=== PATIENT | male | born 1955 | race Caucasian/White ===

== ENCOUNTER 2020-11-27 13:40 | Outpatient (CLI) | payer BC, SELFPAY | END 2020-11-27 13:41 | disposition home or self-care (01) | LOC: CHSLAB 13:50 | PROVIDERS: PCP Specialist; Visit Provider Specialist | DX: C44.729 Squamous cell carcinoma of skin of left lower limb, including hip (principal); D22.5 Melanocytic nevi of trunk | CPT/HCPCS: 88305 ==

== ENCOUNTER 2023-04-28 13:44 | Outpatient (CLI) | payer OTHER, SELFPAY | END 2023-04-28 13:45 | disposition home or self-care (01) | LOC: CHSLAB 14:15 | PROVIDERS: PCP Family Medicine; Visit Provider Specialist | DX: C44.42 Squamous cell carcinoma of skin of scalp and neck (principal) | CPT/HCPCS: 88305 ==

== ENCOUNTER 2024-07-26 11:07 | Outpatient (CLI) | payer MEDICARE, SELFPAY ==
--- OUTSIDE RECORDS SUMMARY | 2024-07-26 12:27 | XMS_ITS ---
Author Organization Unknown Address [address] [place] [phone] Phone Care Team Providers Care Scales Inspector Name Role Phone LAZARO Mcdaniel Attending Unavailable ZEN Veliz Primary Unavailable Immunization Immunization Date Status Additional Notes Code Code System pneumococcal polysaccharide PPV23 11/06/2021 Completed 33 CVX Influenza, high-dose, trivalent, PF 02/02/2024 Completed 135 CVX Influenza, split virus, quadrivalent, PF 01/25/2020 Completed 150 CVX Influenza, split virus, quadrivalent, PF 02/26/2023 Completed 150 CVX Influenza, split virus, quadrivalent, preservative 01/28/2017 Completed 158 C VX Influenza, split virus, quadrivalent, preservative 02/02/2018 Completed 158 C VX Influenza, split virus, quadrivalent, preservative 02/23/2019 Completed 158 C VX zoster recombinant 01/25/2020 Completed 187 CVX zoster recombinant 05/30/2020 Completed 187 CVX Influenza, adjuvanted, quadrivalent, PF 03/11/2022 Completed 205 CVX COVID-19, mRNA, LNP-S, PF, 1 00 mcg/0.5mL dose or 50 mcg/0.25mL dose 07/27/2020 Completed 207 CVX COVID-19, mRNA, LNP-S, bivalent, PF, 50 mcg/0.5 mL or 25mcg/0.25 mL dose 03/11/2022 Completed 229 CVX COVID-19, mRNA, LNP-S, PF, karine-sucrose, 30 mcg/0.3 mL 02/26/2023 Completed 309 CVX COVID-19, mRNA, LNP-S, PF, karine-sucrose, 30 mcg/0.3 mL 02/02/2024 Completed 309 CVX Social History Type Status Start Date End Date Code Code Syst em Smoking History Never smoker (Never Smoked) [id number] SNOMED CT Sex Male Medications Medication Start Date End Date Route Frequency Dose Code Code System Medication Instructions Home Meds Amitriptyline HCl 50MG Oral Tablet 12/08/2023 03/15/2024 ORAL AT BEDTIME 25 MILLIGRAMS 498430 RxNorm TAKE 25 MILLIGRAMS ORAL AT BEDTIME Aspirin 81MG Oral Tablet, Enteric Coated 12/08/2023 Unknown ORAL ONCE A DAY 81 MILLIGRAMS 837909 RxNorm TAKE 81 MILLIGRAMS ORAL ONCE A DAY Chlorthalidone 25MG Oral Tablet 12/08/2023 Unknown ORAL ONCE A DAY 25 MILLIGRAMS 005199 RxNorm TAKE 25 MILLIGRAMS ORAL ONCE A DAY E-400-Clear 400 IU Oral Capsule 12/08/2023 Unknown ORAL ONCE A DAY 400 IU 237295 RxNorm TAKE 400 IU ORAL ONCE A DAY Esomeprazole Magnesium 20MG Oral Capsule, Delayed Release 12/08/2023 Unknown ORAL ONCE A DAY 20 MILLIGRAMS 262910 RxNorm TAKE 20 MILLIGRAMS ORAL ONCE A DAY Famotidine 10 10MG Oral Tablet 12/08/2023 Unknown ORAL ONCE A DAY 10 MILLIGRAMS RxNorm TAKE 10 MILLIGRAMS ORAL ONCE A DAY Fexofenadine HCl 180MG Oral Tablet 12/08/2023 Unknown ORAL NEEDED DAILY 180 MILLIGRAMS 552073 RxNorm TAKE 180 MILLIGRAMS ORAL NEEDED DAILY Gemfibrozil 600MG Oral Tablet 12/08/2023 Unknown ORAL TWICE A DAY 600 MILLIGRAMS 633246 RxNorm TAKE 600 MILLIGRAMS ORAL TWICE A DAY Jardiance 25MG Oral Tablet 12/08/2023 Unknown ORAL ONCE A DAY 25 MILLIGRAMS 8402239 RxNorm TAKE 25 MILLIGRAMS ORAL ONCE A DAY Lantus 100U/1ML Subcutaneous Solution 12/08/2023 Unknown SUBCU TANEO US AT BEDTIME 1 unit(s) 621263 RxNorm INJECT INTO 1 EACH SUBCUTANEOU S AT BEDTIME Lisinopril 40MG Oral Tablet 12/08/2023 Unknown ORAL ONCE A DAY 80 MILLIGRAMS 176393 RxNorm TAKE 80 MILLIGRAMS ORAL ONCE A DAY Meclizine HCl 25MG Oral Tablet 12/08/2023 Unknown ORAL NEEDED 3 TIMES A DAY 25 MILLIGRAMS 435599 RxNorm TAKE 25 MILLIGRAMS ORAL NEEDED 3 TIMES A DAY Metoprolol Tartrate 100MG Oral Tablet 12/08/2023 Unknown ORAL TWICE A DAY 100 MILLIGRAMS 297262 RxNorm TAKE 100 MILLIGRAMS ORAL TWICE A DAY Mounjaro 5 MG/0.5 ML Subcutaneous Solution 12/08/2023 Unknown SUBCU TANEO US ONCE A WEEK 1 unit(s) 6413008 RxNorm INJECT INTO 1 EACH SUBCUTANEOU S ONCE A WEEK Ocuvite Adult 50+ 150 MG-1 MG-6 MG-150 MG-30 INTERNATIONAL UNITS-9 MG Oral Capsule, Liquid Filled 12/08/2023 Unknown ORAL ONCE A DAY 1 unit(s) RxNorm TAKE 1 EACH ORAL ONCE A DAY [place]-3 1000MG Oral Capsule, Liquid Filled 12/08/2023 Unknown ORAL TWICE A DAY 2000 MILLIGRAMS 119157 RxNorm TAKE 2000 MILLIGRAMS ORAL TWICE A DAY Potassium Chloride 20MEQ Oral Tablet, Extended Release 12/08/2023 Unknown ORAL THREE TIMES A DAY 40 MEQ 8956426 RxNorm TAKE 40 MEQ ORAL THREE TIMES A DAY Rosuvastatin 10MG Oral Tablet 12/08/2023 Unknown ORAL AT BEDTIME 10 MILLIGRAMS 749649 RxNorm TAKE 10 MILLIGRAMS ORAL AT BEDTIME Triamcinolone Acetonide 0.5% Topical application Cream 12/08/2023 Unknown TOPIC AL APPLI CATIO N NEEDED 3 TIMES A DAY 1 unit(s) 2562794 RxNorm 1 EACH TOPICAL APPLICATION NEEDED 3 TIMES A DAY amLODIPine Besylate 10MG Oral Tablet 12/08/2023 Unknown ORAL ONCE A DAY 10 MILLIGRAMS 068558 RxNorm TAKE 10 MILLIGRAMS ORAL ONCE A DAY metFORMIN HCl 1000MG Oral Tablet 12/08/2023 Unknown ORAL TWICE A DAY 1000 MILLIGRAMS 264301 RxNorm TAKE 1000 MILLIGRAMS ORAL TWICE A DAY tadalafil 20MG Oral Tablet 12/08/2023 Unknown ORAL NEEDED DAILY 20 MILLIGRAMS 3916280 RxNorm TAKE 20 MILLIGRAMS ORAL NEEDED DAILY Hospital Discharge Instructions Should you have any questions prior to discharge, please contact a member of your healthcare team. If you have left the hospital and have any questions, please contact your primary care physician. Reason For Referral No Data Found Allergies and Adverse Reactions Allergy Substance Reaction Severity Start Date Concern Status Co de Code System No Known Allergies Active [id number] SNO MED-CT Plan of Treatment Carpal Tunnel Release L 12/08/2023 Cubital Tunnel Release R 03/21/2024 Encounters Encounter Diagnosis Start Date Code Code Sys tem Encounter for surgical after care following surgery on the nervous system 01/26/2024 SNOMED-CT Personal Care Team Section Performer Name Performer Role Active Date Inactive Da te
--- OUTSIDE RECORDS SUMMARY | 2024-07-26 12:27 | XMS_ITS ---
Author Organization Unknown Address [address] [place] [phone] Phone Care Team Providers Care Dairy Farm Operator Name Role Phone ZEN Veliz Attending Unavailable Immunization Immunization Date Status Additional Notes [...] 30 mcg/0.3 mL 02/02/2024 Completed 309 CVX Results COMPREHENSIVE METABOLIC PANE L - Collect Date/Time: 09/02/2023 09:32 [facility] ID: [id number] [address] [place], [place], [phone] LOINC: 58947-9 Test Value Unit Reference Range Code Code System Flag FASTING NO BUN 21 mg/dL L=7 H=20 3094-0 LOINC H CREATININE 1.00 mg/dL L=0.66 H=1.25 2160-0 LOINC GLUCOSE 209 mg/dL L=74 H=106 2345-7 LOINC H SODIUM 140 mmol/L L=132 H=144 2951-2 LOINC POTASSIUM 3.2 mmol/L L=3.5 H=5.1 2823-3 LOINC L CHLORIDE 100 mmol/L L=98 H=107 2075-0 LOINC CO2 30.0 mmol/L L=22.0 H=30.0 2028-9 LOINC ANION GAP 13 L=10 H=20 05214-7 LOINC OSMOLALITY 299 mOs/kG L=280 H=296 75968-3 LOINC H BUN/CREAT 21.0 3097-3 LOINC CALCIUM 9.0 mg/dL L=8.3 H=10.5 74472-8 LOINC AST 31 U/L L=15 H=46 1920-8 LOINC ALT 30 U/L L=9 H=72 1742-6 LOINC ALKALINE PHOS 124 U/L L=38 H=126 6768-6 LOINC TOTAL BILI 0.7 mg/dL L=0.2 H=1.3 1975-2 LOINC ALBUMIN 4.7 G/dL L=3.5 H=5.0 1751-7 LOINC TOTAL PROTEIN 7.8 g/L L=6.3 H=8.2 2885-2 LOINC A/G RATIO 1.5 12960-4 LOINC AGE 68 98114-1 LOINC eGFR NON-AFR 79 ml/min eGFR AFR AMER 96 ml/min HGB A1C -GLYCOHEMOGLOBIN - C ollect Date/Time: 09/02/2023 09:32 [facility] ID: [id number] [address] [place], [place], [id number] LOINC: 4548-4 Test Value Unit Reference Range Code Code System Flag HGBA1C 8.0 % 4548-4 LOINC Social History Type Status Start Date End Date Code Code Syst em Smoking History Never smoker (Never Smoked) [id number] SNOMED CT Sex Male Medications Medication Start Date End Date Route Frequency Dose Code Code System Medication Instructions Home Meds Amitriptyline HCl 50MG Oral Tablet 12/08/2023 03/15/2024 ORAL AT BEDTIME 25 MILLIGRAMS 726478 RxNorm TAKE 25 MILLIGRAMS ORAL AT BEDTIME Aspirin 81MG Oral Tablet, Enteric Coated 12/08/2023 Unknown ORAL ONCE A DAY 81 MILLIGRAMS 288719 RxNorm TAKE 81 MILLIGRAMS ORAL ONCE A DAY Chlorthalidone 25MG Oral Tablet 12/08/2023 Unknown ORAL ONCE A DAY 25 MILLIGRAMS 844986 RxNorm TAKE 25 MILLIGRAMS ORAL ONCE A DAY E-400-Clear 400 IU Oral Capsule 12/08/2023 Unknown ORAL ONCE A DAY 400 IU 932052 RxNorm TAKE 400 IU ORAL ONCE A DAY Esomeprazole Magnesium 20MG Oral Capsule, Delayed Release 12/08/2023 Unknown ORAL ONCE A DAY 20 MILLIGRAMS 025272 RxNorm TAKE 20 MILLIGRAMS ORAL ONCE A DAY Famotidine 10 10MG Oral Tablet 12/08/2023 Unknown ORAL ONCE A DAY 10 MILLIGRAMS RxNorm TAKE 10 MILLIGRAMS ORAL ONCE A DAY Fexofenadine HCl 180MG Oral Tablet 12/08/2023 Unknown ORAL NEEDED DAILY 180 MILLIGRAMS 254990 RxNorm TAKE 180 MILLIGRAMS ORAL NEEDED DAILY Gemfibrozil 600MG Oral Tablet 12/08/2023 Unknown ORAL TWICE A DAY 600 MILLIGRAMS 015302 RxNorm TAKE 600 MILLIGRAMS ORAL TWICE A DAY Jardiance 25MG Oral Tablet 12/08/2023 Unknown ORAL ONCE A DAY 25 MILLIGRAMS 8255980 RxNorm TAKE 25 MILLIGRAMS ORAL ONCE A DAY Lantus 100U/1ML Subcutaneous Solution 12/08/2023 Unknown SUBCU TANEO US AT BEDTIME 1 unit(s) 043461 RxNorm INJECT INTO 1 EACH SUBCUTANEOU S AT BEDTIME Lisinopril 40MG Oral Tablet 12/08/2023 Unknown ORAL ONCE A DAY 80 MILLIGRAMS 937004 RxNorm TAKE 80 MILLIGRAMS ORAL ONCE A DAY Meclizine HCl 25MG Oral Tablet 12/08/2023 Unknown ORAL NEEDED 3 TIMES A DAY 25 MILLIGRAMS 147458 RxNorm TAKE 25 MILLIGRAMS ORAL NEEDED 3 TIMES A DAY Metoprolol Tartrate 100MG Oral Tablet 12/08/2023 Unknown ORAL TWICE A DAY 100 MILLIGRAMS 132298 RxNorm TAKE 100 MILLIGRAMS ORAL TWICE A DAY Mounjaro 5 MG/0.5 ML Subcutaneous Solution 12/08/2023 Unknown SUBCU TANEO US ONCE A WEEK 1 unit(s) 0229476 RxNorm INJECT INTO 1 EACH SUBCUTANEOU S ONCE A WEEK Ocuvite Adult 50+ 150 MG-1 MG-6 MG-150 MG-30 INTERNATIONAL UNITS-9 MG Oral Capsule, Liquid Filled 12/08/2023 Unknown ORAL ONCE A DAY 1 unit(s) RxNorm TAKE 1 EACH ORAL ONCE A DAY [place]-3 1000MG Oral Capsule, Liquid Filled 12/08/2023 Unknown ORAL TWICE A DAY 2000 MILLIGRAMS 125996 RxNorm TAKE 2000 MILLIGRAMS ORAL TWICE A DAY Potassium Chloride 20MEQ Oral Tablet, Extended Release 12/08/2023 Unknown ORAL THREE TIMES A DAY 40 MEQ 0514596 RxNorm TAKE 40 MEQ ORAL THREE TIMES A DAY Rosuvastatin 10MG Oral Tablet 12/08/2023 Unknown ORAL AT BEDTIME 10 MILLIGRAMS 340011 RxNorm TAKE 10 MILLIGRAMS ORAL AT BEDTIME Triamcinolone Acetonide 0.5% Topical application Cream 12/08/2023 Unknown TOPIC AL APPLI CATIO N NEEDED 3 TIMES A DAY 1 unit(s) 0473334 RxNorm 1 EACH TOPICAL APPLICATION NEEDED 3 TIMES A DAY amLODIPine Besylate 10MG Oral Tablet 12/08/2023 Unknown ORAL ONCE A DAY 10 MILLIGRAMS 422449 RxNorm TAKE 10 MILLIGRAMS ORAL ONCE A DAY metFORMIN HCl 1000MG Oral Tablet 12/08/2023 Unknown ORAL TWICE A DAY 1000 MILLIGRAMS 378406 RxNorm TAKE 1000 MILLIGRAMS ORAL TWICE A DAY tadalafil 20MG Oral Tablet 12/08/2023 Unknown ORAL NEEDED DAILY 20 MILLIGRAMS 7412909 RxNorm TAKE 20 MILLIGRAMS ORAL NEEDED DAILY [...] de Code System No Known Allergies Active [id number] SNO MED-CT Plan of Treatment Carpal Tunnel Release L 12/08/2023 Cubital Tunnel Release R 03/21/2024 Encounters Encounter Diagnosis Start Date Code Code Sys tem Type 2 diabetes mellitus without complications 024 SNOMED-CT Personal Care Team Section Performer Name Performer Role Active Date Inactive Da te
--- OUTSIDE RECORDS SUMMARY | 2024-07-26 12:28 | XMS_ITS ---
Author Organization Unknown Address [address] [place] [address] [phone] Phone Care Team Providers Care Senior Branch Manager Name Role Phone LAZARO Mcdaniel Attending Unavailable SCOTT LOPEZ ABSTRACT CHECKER Unavailable ZEN Veliz Primary Unavailable Immunization Immunization [...] em Smoking History Never smoker (Never Smoked) [id number] SNOMED CT Sex Male Vital Signs Vital Sign Value Unit Winn Value Winn Unit Date/Time Recent/Initial? Code Code System Body Mass Index 28.87 kg/m2 03/21/2024 07:12 Most Recent 49834 -5 LOINC Body Mass Index 30.27 kg/m2 03/15/2024 09:40 Initial 58083 -5 LOINC Systolic Blood Pressure 109 mm[Hg] 03/21/2024 07:14 Initial 8480- 6 LOINC Diastolic Blood Pressure 60 mm[Hg] 03/21/2024 07:14 Initial 8462- 4 LOINC Body Surface Area 2.17 m2 03/21/2024 07:12 Most Recent 3140- 1 LOINC Body Surface Area 2.22 m2 03/15/2024 09:40 Initial 3140- 1 LOINC Height 180.340 0 cm 71.00 in 03/21/2024 07:12 Most Recent 8302- 2 LOINC Height 180.340 0 cm 71.00 in 03/15/2024 09:40 Initial 8302- 2 INC O2 Saturation 94 % 2023 07:14 Initial 72151 -5 INC Pulse 64.0 /min 03/21/2024 07:14 Initial 8867- 4 INC Respiration 14 /min 03/21/20 07:14 Initial 9279- 1 INC Temperature 36.2 Tarsha 97.1 F 03/21/20 07:14 Initial 8310- 5 INC Weight 93.89 kg 207.00 lbs 03/21/2024 07:12 Most Recent 67753 -7 INC Weight 98.43 kg 217.00 lbs 03/15/2024 09:40 Initial 18955 -7 [facility] Medications Medication Start Date End Date Route Frequency Dose Code Code System Medication Instructions Home Meds Aspirin 81MG Oral Tablet, Enteric Coated 12/08/2023 Unknown ORAL ONCE A DAY 81 MILLIGRAMS 274779 RxNorm TAKE 81 MILLIGRAMS ORAL ONCE A DAY Chlorthalid one 25MG Oral Tablet 12/08/2023 Unknown ORAL ONCE A DAY 25 MILLIGRAMS 687336 RxNorm TAKE 25 MILLIGRAMS ORAL ONCE A DAY E-400-Clear 400 IU Oral Capsule 12/08/2023 Unknown ORAL ONCE A DAY 400 IU 238653 RxNorm TAKE 400 IU ORAL ONCE A DAY Esomeprazol e Magnesium 20MG Oral Capsule, Delayed Release 12/08/2023 Unknown ORAL ONCE A DAY 20 MILLIGRAMS 605989 RxNorm TAKE 20 MILLIGRAMS ORAL ONCE A DAY Famotidine 10 10MG Oral Tablet 12/08/2023 Unknown ORAL ONCE A DAY 10 MILLIGRAMS RxNorm TAKE 10 MILLIGRAMS ORAL ONCE A DAY Fexofenadin e HCl 180MG Oral Tablet 12/08/2023 Unknown ORAL NEEDED DAILY 180 MILLIGRAMS 134755 RxNorm TAKE 180 MILLIGRAMS ORAL NEEDED DAILY Gemfibrozil 600MG Oral Tablet 12/08/2023 Unknown ORAL TWICE A DAY 600 MILLIGRAMS 897765 RxNorm TAKE 600 MILLIGRAMS ORAL TWICE A DAY Jardiance 25MG Oral Tablet 12/08/2023 Unknown ORAL ONCE A DAY 25 MILLIGRAMS 9160165 RxNorm TAKE 25 MILLIGRAMS ORAL ONCE A DAY Lantus 100U/1ML Subcutaneou s Solution 12/08/2023 Unknown SUBCUTAN EOUS AT BEDTIME 1 unit(s) 016451 RxNorm INJECT INTO 1 EACH SUBCUTANEOUS AT BEDTIME Lisinopril 40MG Oral Tablet 12/08/2023 Unknown ORAL ONCE A DAY 80 MILLIGRAMS 746641 RxNorm TAKE 80 MILLIGRAMS ORAL ONCE A DAY Meclizine HCl 25MG Oral Tablet 12/08/2023 Unknown ORAL NEEDED 3 TIMES A DAY 25 MILLIGRAMS 166034 RxNorm TAKE 25 MILLIGRAMS ORAL NEEDED 3 TIMES A DAY Metoprolol Tartrate 100MG Oral Tablet 12/08/2023 Unknown ORAL TWICE A DAY 100 MILLIGRAMS 606683 RxNorm TAKE 100 MILLIGRAMS ORAL TWICE A DAY Mounjaro 5 MG/0.5 ML Subcutaneou s Solution 12/08/2023 Unknown SUBCUTAN EOUS ONCE A WEEK 1 unit(s) 5417903 RxNorm INJECT INTO 1 EACH SUBCUTANEOUS ONCE A WEEK Ocuvite Adult 50+ 150 MG-1 MG-6 MG-150 MG-30 INTERNATION AL UNITS-9 MG Oral Capsule, Liquid Filled 12/08/2023 Unknown ORAL ONCE A DAY 1 unit(s) RxNorm TAKE 1 EACH ORAL ONCE A DAY [place]-3 1000MG Oral Capsule, Liquid Filled 12/08/2023 Unknown ORAL TWICE A DAY 2000 MILLIGRAMS 695055 RxNorm TAKE 2000 MILLIGRAMS ORAL TWICE A DAY Potassium Chloride 20MEQ Oral Tablet, Extended Release 12/08/2023 Unknown ORAL THREE TIMES A DAY 40 MEQ 3001649 RxNorm TAKE 40 MEQ ORAL THREE TIMES A DAY Rosuvastati n 10MG Oral Tablet 12/08/2023 Unknown ORAL AT BEDTIME 10 MILLIGRAMS 701835 RxNorm TAKE 10 MILLIGRAMS ORAL AT BEDTIME Triamcinolo ne Acetonide 0.5% Topical application Cream 12/08/2023 Unknown TOPICAL APPLICAT ION NEEDED 3 TIMES A DAY 1 unit(s) 8121686 RxNorm 1 EACH TOPICAL APPLICATION NEEDED 3 TIMES A DAY amLODIPine Besylate 10MG Oral Tablet 12/08/2023 Unknown ORAL ONCE A DAY 10 MILLIGRAMS 879825 RxNorm TAKE 10 MILLIGRAMS ORAL ONCE A DAY metFORMIN HCl 1000MG Oral Tablet 12/08/2023 Unknown ORAL TWICE A DAY 1000 MILLIGRAMS 059355 RxNorm TAKE 1000 MILLIGRAMS ORAL TWICE A DAY tadalafil 20MG Oral Tablet 12/08/2023 Unknown ORAL NEEDED DAILY 20 MILLIGRAMS 1392016 RxNorm TAKE 20 MILLIGRAMS ORAL NEEDED DAILY Hospital Discharge Instructions Should you have any questions prior to discharge, please contact a member of your healthcare team. If you have left the hospital and have any questions, please contact your primary care physician. Reason For Referral No Data Found Procedures Procedure Name Date Status Code Code Syste m Neuroplasty and/or transposi tion; median nerve at carpal tunnel; (-RT Righ 03/21/2024 completed 58501 CPT Anesthesia for procedures on nerves, muscles, tendons, fascia, and bursae 03/21/2024 completed 38520 CPT Neuroplasty and/or transposi tion; ulnar nerve at elbow 03/21/2024 completed 92963 CPT Allergies and Adverse Reactions Allergy Substance Reaction Severity Start Date Concern Status Co de Code System No Known Allergies Active [id number] [facility] [place]-CT Plan of Treatment Carpal Tunnel Release L 12/08/2023 Cubital Tunnel Release R 03/21/2024 Encounters Encounter Diagnosis Start Date Code Code Sys tem Carpal tunnel syndrome, right upper limb 03/21/2024 SNOMED-CT Personal Care Team Section Performer Name Performer Role Active Date Inactive Da te
--- OUTSIDE RECORDS SUMMARY | 2024-07-26 12:28 | XMS_ITS | Clinical Summary ---
Author Organization [facility] Address [facility] [place] [address] Care Team Providers Care Washer Repairman Name Role Phone Unavailable Primary Care Provider Unavailabl e Social History Tobacco Use Types Packs/Day Years Used Date Smoking Tobacco: Never Assessed Sex and Gender Information Value Date Recorded Sex Assigned at Not on file Legal Sex Male 8:52 PM CDT Gender Identity Not on file Sexual Orientation Not on file Plan of Treatment Health Maintenance Due Date Last Done Comments Colorectal Cancer Screening Colonoscopy (10 Years) 1956 Hepatitis C 1974 DTaP, Tdap and Td Vaccines ( 1 - Tdap) 1975 Zoster Vaccines (1 of 2) 2006 Pneumococcal Vaccine: 65+ Ye ars (1 of 1 - PCV) 2021 COVID-19 Vaccine (1 - 2023-2 5 season) 2023 Influenza Adult (#1) 2024 RSV Immunization or 60+ Years (1 - 1-dose 75+ series) 2031 Meningococcal B Vaccine Aged Out No l onger eligible based on patient's age to complete this topic Meningococcal Vaccine Aged Out No cara adela eligible based on patient's age to complete this topic RSV Immunizations Under 20 Months Aged Out No longer eligible based on patient's age to complete this topic Insurance
--- OUTSIDE RECORDS SUMMARY | 2024-07-26 12:28 | XMS_ITS ---
Author Organization Unknown Address [address] [place] [address] [phone] Phone Care Team Providers Care Lawn And Garden Technician Name Role Phone ZEN Veliz Attending Unavailable [...] mcg/0.3 mL 02/02/2024 Completed 309 CVX Results HGB A1C -GLYCOHEMOGLOBIN - C ollect Date/Time: 03/31/2023 09:01 [facility] ID: [id number] [address] [place] [address], [phone] LOINC: 4548-4 Test Value Unit Reference Range Code Code System Flag HGBA1C 8.0 % 4548-4 LOINC LIPID PANEL - Collect Date/T shiraz: 03/31/2023 09:01 [facility] ID: [id number] [address] [place] [address], [phone] LOINC: 46991-6 Test Value Unit Reference Range Code Code System Flag FASTING YES CHOLESTEROL 191 mg/dL L=0 H=200 2093-3 LOINC TRIGLYCERIDE 679 mg/dL L=0 H=150 2571-8 LOINC H HDL 33 mg/dL L=40 H=60 2084-9 LOINC L LDL 56 mg/dL 2088- LOINC COMPREHENSIVE METABOLIC PANE L - Collect Date/Time: 03/31/2023 09:01 [facility] ID: [id number] [address] [place] [address], [phone] LOINC: 79469-3 Test Value Unit Reference Range Code Code System Flag FASTING YES BUN 24 mg/dL L=7 H=20 3094-0 LOINC H CREATININE 1.00 mg/dL L=0.66 H=1.25 2160-0 LOINC GLUCOSE 140 mg/dL L=74 H=106 2345-7 LOINC H SODIUM 144 mmol/L L=132 H=144 2951-2 LOINC POTASSIUM 3.4 mmol/L L=3.5 H=5.1 2823-3 LOINC L CHLORIDE 102 mmol/L L=98 H=107 2075-0 LOINC CO2 30.0 mmol/L L=22.0 H=30.0 8-9 LOINC ANION GAP 15 L=10 H=20 60039-5 LOINC OSMOLALITY 304 mOs/kG L=280 H=296 79710-9 LOINC H BUN/CREAT 24.0 3097-3 LOINC CALCIUM 9.7 mg/dL L=8.3 H=10.5 19951-7 LOINC AST 26 U/L L=15 H=46 1920-8 LOINC ALT 33 U/L L=9 H=72 1742-6 LOINC ALKALINE PHOS 127 U/L L=38 H=126 6768-6 LOINC H TOTAL BILI 0.7 mg/dL L=0.2 H=1.3 1975-2 LOINC ALBUMIN 5.1 G/dL L=3.5 H=5.0 1751-7 LOINC H TOTAL PROTEIN 8.6 g/L L=6.3 H=8.2 2885-2 LOINC H A/G RATIO 1.5 25136-4 LOINC AGE 67 65582-7 LOINC eGFR NON-AFR 79 ml/min eGFR AFR AMER 96 ml/min MICROALBUMIN - Collect Date/ Time: 03/31/2023 08:58 [facility] ID: [id number] [address] [place], [place], [phone] LOINC: 63029-6 Test Value Unit Reference Range Code Code System Flag MICROALBUMIN 28.5 mg/L L=0.0 H=16.7 96482-4 LOINC H UR CREATININE 102.60 mg/dL L=30.00 H=125 2161-8 LOINC MA/CR 27.8 mg/gCR Social History Type Status Start Date End Date Code Code Syst em Smoking History Never smoker (Never Smoked) [id number] SNOMED CT Sex Male Medications Medication Start Date End Date Route Frequency Dose Code Code System Medication Instructions Home Meds Amitriptyline HCl 50MG Oral Tablet 12/08/2023 03/15/2024 ORAL AT BEDTIME 25 MILLIGRAMS 844680 RxNorm TAKE 25 MILLIGRAMS ORAL AT BEDTIME Aspirin 81MG Oral Tablet, Enteric Coated 12/08/2023 Unknown ORAL ONCE A DAY 81 MILLIGRAMS 323031 RxNorm TAKE 81 MILLIGRAMS ORAL ONCE A DAY Chlorthalidone 25MG Oral Tablet 12/08/2023 Unknown ORAL ONCE A DAY 25 MILLIGRAMS 483290 RxNorm TAKE 25 MILLIGRAMS ORAL ONCE A DAY E-400-Clear 400 IU Oral Capsule 12/08/2023 Unknown ORAL ONCE A DAY 400 IU [id number] RxNorm TAKE 400 IU ORAL ONCE A DAY Esomeprazole Magnesium 20MG Oral Capsule, Delayed Release 12/08/2023 Unknown ORAL ONCE A DAY 20 MILLIGRAMS 025434 RxNorm TAKE 20 MILLIGRAMS ORAL ONCE A DAY Famotidine 10 10MG Oral Tablet 12/08/2023 Unknown ORAL ONCE A DAY 10 MILLIGRAMS RxNorm TAKE 10 MILLIGRAMS ORAL ONCE A DAY Fexofenadine HCl 180MG Oral Tablet 12/08/2023 Unknown ORAL NEEDED DAILY 180 MILLIGRAMS 447853 RxNorm TAKE 180 MILLIGRAMS ORAL NEEDED DAILY Gemfibrozil 600MG Oral Tablet 12/08/2023 Unknown ORAL TWICE A DAY 600 MILLIGRAMS 302005 RxNorm TAKE 600 MILLIGRAMS ORAL TWICE A DAY Jardiance 25MG Oral Tablet 12/08/2023 Unknown ORAL ONCE A DAY 25 MILLIGRAMS 9421865 RxNorm TAKE 25 MILLIGRAMS ORAL ONCE A DAY Lantus 100U/1ML Subcutaneous Solution 12/08/2023 Unknown SUBCU TANEO US AT BEDTIME 1 unit(s) 081738 RxNorm INJECT INTO 1 EACH SUBCUTANEOU S AT BEDTIME Lisinopril 40MG Oral Tablet 12/08/2023 Unknown ORAL ONCE A DAY 80 MILLIGRAMS 694603 RxNorm TAKE 80 MILLIGRAMS ORAL ONCE A DAY Meclizine HCl 25MG Oral Tablet 12/08/2023 Unknown ORAL NEEDED 3 TIMES A DAY 25 MILLIGRAMS 224485 RxNorm TAKE 25 MILLIGRAMS ORAL NEEDED 3 TIMES A DAY Metoprolol Tartrate 100MG Oral Tablet 12/08/2023 Unknown ORAL TWICE A DAY 100 MILLIGRAMS 984373 RxNorm TAKE 100 MILLIGRAMS ORAL TWICE A DAY Mounjaro 5 MG/0.5 ML Subcutaneous Solution 12/08/2023 Unknown SUBCU TANEO US ONCE A WEEK 1 unit(s) 4432074 RxNorm INJECT INTO 1 EACH SUBCUTANEOU S ONCE A WEEK Ocuvite Adult 50+ 150 MG-1 MG-6 MG-150 MG-30 INTERNATIONAL UNITS-9 MG Oral Capsule, Liquid Filled 12/08/2023 Unknown ORAL ONCE A DAY 1 unit(s) RxNorm TAKE 1 EACH ORAL ONCE A DAY [place]-3 1000MG Oral Capsule, Liquid Filled 12/08/2023 Unknown ORAL TWICE A DAY 2000 MILLIGRAMS 665182 RxNorm TAKE 2000 MILLIGRAMS ORAL TWICE A DAY Potassium Chloride 20MEQ Oral Tablet, Extended Release 12/08/2023 Unknown ORAL THREE TIMES A DAY 40 MEQ 8515651 RxNorm TAKE 40 MEQ ORAL THREE TIMES A DAY Rosuvastatin 10MG Oral Tablet 12/08/2023 Unknown ORAL AT BEDTIME 10 MILLIGRAMS 911027 RxNorm TAKE 10 MILLIGRAMS ORAL AT BEDTIME Triamcinolone Acetonide 0.5% Topical application Cream 12/08/2023 Unknown TOPIC AL APPLI CATIO N NEEDED 3 TIMES A DAY 1 unit(s) 7749090 RxNorm 1 EACH TOPICAL APPLICATION NEEDED 3 TIMES A DAY amLODIPine Besylate 10MG Oral Tablet 12/08/2023 Unknown ORAL ONCE A DAY 10 MILLIGRAMS 977664 RxNorm TAKE 10 MILLIGRAMS ORAL ONCE A DAY metFORMIN HCl 1000MG Oral Tablet 12/08/2023 Unknown ORAL TWICE A DAY 1000 MILLIGRAMS 848399 RxNorm TAKE 1000 MILLIGRAMS ORAL TWICE A DAY tadalafil 20MG Oral Tablet 12/08/2023 Unknown ORAL NEEDED DAILY 20 MILLIGRAMS 4120048 RxNorm TAKE 20 MILLIGRAMS ORAL NEEDED DAILY [...] de Code System No Known Allergies Active [id number] [facility] Plan of Treatment Carpal Tunnel Release L 12/08/2023 Cubital Tunnel Release R 03/21/2024 Encounters Encounter Diagnosis Start Date Code Code Sys tem Type 2 diabetes mellitus without complications 023 SNOMED-CT Personal Care Team Section Performer Name Performer Role Active Date Inactive Da jayro
--- OUTSIDE RECORDS SUMMARY | 2024-07-26 12:28 | XMS_ITS ---
Author Organization Unknown Address [address] [place] [address] [phone] Phone Care Team Providers Care Goggles Assembler Name Role Phone BLAKE ROSS Attending Unavailable ZEN Veliz Primary Unavailable Immunization [...] em Smoking History Never smoker (Never Smoked) [id number] SNOMED CT Sex Male Medications Medication Start Date End Date Route Frequency Dose Code Code System Medication Instructions Home Meds Aspirin 81MG Oral Tablet, Enteric Coated 12/08/2023 Unknown ORAL ONCE A DAY 81 MILLIGRAMS 221028 RxNorm TAKE 81 MILLIGRAMS ORAL ONCE A DAY Chlorthalid one 25MG Oral Tablet 12/08/2023 Unknown ORAL ONCE A DAY 25 MILLIGRAMS 852928 RxNorm TAKE 25 MILLIGRAMS ORAL ONCE A DAY E-400-Clear 400 IU Oral Capsule 12/08/2023 Unknown ORAL ONCE A DAY 400 IU 040479 RxNorm TAKE 400 IU ORAL ONCE A DAY Esomeprazol e Magnesium 20MG Oral Capsule, Delayed Release 12/08/2023 Unknown ORAL ONCE A DAY 20 MILLIGRAMS 114018 RxNorm TAKE 20 MILLIGRAMS ORAL ONCE A DAY Famotidine 10 10MG Oral Tablet 12/08/2023 Unknown ORAL ONCE A DAY 10 MILLIGRAMS RxNorm TAKE 10 MILLIGRAMS ORAL ONCE A DAY Fexofenadin e HCl 180MG Oral Tablet 12/08/2023 Unknown ORAL NEEDED DAILY 180 MILLIGRAMS 713807 RxNorm TAKE 180 MILLIGRAMS ORAL NEEDED DAILY Gemfibrozil 600MG Oral Tablet 12/08/2023 Unknown ORAL TWICE A DAY 600 MILLIGRAMS 603995 RxNorm TAKE 600 MILLIGRAMS ORAL TWICE A DAY Jardiance 25MG Oral Tablet 12/08/2023 Unknown ORAL ONCE A DAY 25 MILLIGRAMS 9352731 RxNorm TAKE 25 MILLIGRAMS ORAL ONCE A DAY Lantus 100U/1ML Subcutaneou s Solution 12/08/2023 Unknown SUBCUTAN EOUS AT BEDTIME 1 unit(s) 865158 RxNorm INJECT INTO 1 EACH SUBCUTANEOUS AT BEDTIME Lisinopril 40MG Oral Tablet 12/08/2023 Unknown ORAL ONCE A DAY 80 MILLIGRAMS 108984 RxNorm TAKE 80 MILLIGRAMS ORAL ONCE A DAY Meclizine HCl 25MG Oral Tablet 12/08/2023 Unknown ORAL NEEDED 3 TIMES A DAY 25 MILLIGRAMS 215456 RxNorm TAKE 25 MILLIGRAMS ORAL NEEDED 3 TIMES A DAY Metoprolol Tartrate 100MG Oral Tablet 12/08/2023 Unknown ORAL TWICE A DAY 100 MILLIGRAMS 897260 RxNorm TAKE 100 MILLIGRAMS ORAL TWICE A DAY Mounjaro 5 MG/0.5 ML Subcutaneou s Solution 12/08/2023 Unknown SUBCUTAN EOUS ONCE A WEEK 1 unit(s) 4028406 RxNorm INJECT INTO 1 EACH SUBCUTANEOUS ONCE A WEEK Ocuvite Adult 50+ 150 MG-1 MG-6 MG-150 MG-30 INTERNATION AL UNITS-9 MG Oral Capsule, Liquid Filled 12/08/2023 Unknown ORAL ONCE A DAY 1 unit(s) RxNorm TAKE 1 EACH ORAL ONCE A DAY [place]-3 1000MG Oral Capsule, Liquid Filled 12/08/2023 Unknown ORAL TWICE A DAY 2000 MILLIGRAMS 758447 RxNorm TAKE 2000 MILLIGRAMS ORAL TWICE A DAY Potassium Chloride 20MEQ Oral Tablet, Extended Release 12/08/2023 Unknown ORAL THREE TIMES A DAY 40 MEQ 9247035 RxNorm TAKE 40 MEQ ORAL THREE TIMES A DAY Rosuvastati n 10MG Oral Tablet 12/08/2023 Unknown ORAL AT BEDTIME 10 MILLIGRAMS 961325 RxNorm TAKE 10 MILLIGRAMS ORAL AT BEDTIME Triamcinolo ne Acetonide 0.5% Topical application Cream 12/08/2023 Unknown TOPICAL APPLICAT ION NEEDED 3 TIMES A DAY 1 unit(s) 0044371 RxNorm 1 EACH TOPICAL APPLICATION NEEDED 3 TIMES A DAY amLODIPine Besylate 10MG Oral Tablet 12/08/2023 Unknown ORAL ONCE A DAY 10 MILLIGRAMS 506666 RxNorm TAKE 10 MILLIGRAMS ORAL ONCE A DAY metFORMIN HCl 1000MG Oral Tablet 12/08/2023 Unknown ORAL TWICE A DAY 1000 MILLIGRAMS 512369 RxNorm TAKE 1000 MILLIGRAMS ORAL TWICE A DAY tadalafil 20MG Oral Tablet 12/08/2023 Unknown ORAL NEEDED DAILY 20 MILLIGRAMS 8726244 RxNorm TAKE 20 MILLIGRAMS ORAL NEEDED DAILY [...] de Code System No Known Allergies Active [id number] [facility] Plan of Treatment Carpal Tunnel Release L 12/08/2023 Cubital Tunnel Release R 03/21/2024 Encounters Encounter Diagnosis Start Date Code Code Sys tem Pain in left hip 06/09/2024 SNOMED-CT Personal Care Team Section Performer Name Performer Role Active Date Inactive Da te
--- OUTSIDE RECORDS SUMMARY | 2024-07-26 12:28 | XMS_ITS ---
Author Organization Unknown Address [address] [place] [address] [phone] Phone Care Team Providers Care Drum Sander Name Role Phone LAZARO Mcdaniel Attending Unavailable [...] em Smoking History Never smoker (Never Smoked) [id number] SNOMED CT Sex Male Medications Medication Start Date End Date Route Frequency Dose Code Code System Medication Instructions Home Meds Amitriptyline HCl 50MG Oral Tablet 12/08/2023 03/15/2024 ORAL AT BEDTIME 25 MILLIGRAMS 645738 RxNorm TAKE 25 MILLIGRAMS ORAL AT BEDTIME Aspirin 81MG Oral Tablet, Enteric Coated 12/08/2023 Unknown ORAL ONCE A DAY 81 MILLIGRAMS 857045 RxNorm TAKE 81 MILLIGRAMS ORAL ONCE A DAY Chlorthalidone 25MG Oral Tablet 12/08/2023 Unknown ORAL ONCE A DAY 25 MILLIGRAMS 508177 RxNorm TAKE 25 MILLIGRAMS ORAL ONCE A DAY E-400-Clear 400 IU Oral Capsule 12/08/2023 Unknown ORAL ONCE A DAY 400 IU 515311 RxNorm TAKE 400 IU ORAL ONCE A DAY Esomeprazole Magnesium 20MG Oral Capsule, Delayed Release 12/08/2023 Unknown ORAL ONCE A DAY 20 MILLIGRAMS 275346 RxNorm TAKE 20 MILLIGRAMS ORAL ONCE A DAY Famotidine 10 10MG Oral Tablet 12/08/2023 Unknown ORAL ONCE A DAY 10 MILLIGRAMS RxNorm TAKE 10 MILLIGRAMS ORAL ONCE A DAY Fexofenadine HCl 180MG Oral Tablet 12/08/2023 Unknown ORAL NEEDED DAILY 180 MILLIGRAMS 183527 RxNorm TAKE 180 MILLIGRAMS ORAL NEEDED DAILY Gemfibrozil 600MG Oral Tablet 12/08/2023 Unknown ORAL TWICE A DAY 600 MILLIGRAMS 558624 RxNorm TAKE 600 MILLIGRAMS ORAL TWICE A DAY Jardiance 25MG Oral Tablet 12/08/2023 Unknown ORAL ONCE A DAY 25 MILLIGRAMS 7341492 RxNorm TAKE 25 MILLIGRAMS ORAL ONCE A DAY Lantus 100U/1ML Subcutaneous Solution 12/08/2023 Unknown SUBCU TANEO US AT BEDTIME 1 unit(s) 513255 RxNorm INJECT INTO 1 EACH SUBCUTANEOU S AT BEDTIME Lisinopril 40MG Oral Tablet 12/08/2023 Unknown ORAL ONCE A DAY 80 MILLIGRAMS 128265 RxNorm TAKE 80 MILLIGRAMS ORAL ONCE A DAY Meclizine HCl 25MG Oral Tablet 12/08/2023 Unknown ORAL NEEDED 3 TIMES A DAY 25 MILLIGRAMS 159564 RxNorm TAKE 25 MILLIGRAMS ORAL NEEDED 3 TIMES A DAY Metoprolol Tartrate 100MG Oral Tablet 12/08/2023 Unknown ORAL TWICE A DAY 100 MILLIGRAMS 802570 RxNorm TAKE 100 MILLIGRAMS ORAL TWICE A DAY Mounjaro 5 MG/0.5 ML Subcutaneous Solution 12/08/2023 Unknown SUBCU TANEO US ONCE A WEEK 1 unit(s) 6892939 RxNorm INJECT INTO 1 EACH SUBCUTANEOU S ONCE A WEEK Ocuvite Adult 50+ 150 MG-1 MG-6 MG-150 MG-30 INTERNATIONAL UNITS-9 MG Oral Capsule, Liquid Filled 12/08/2023 Unknown ORAL ONCE A DAY 1 unit(s) RxNorm TAKE 1 EACH ORAL ONCE A DAY [place]-3 1000MG Oral Capsule, Liquid Filled 12/08/2023 Unknown ORAL TWICE A DAY 2000 MILLIGRAMS 293146 RxNorm TAKE 2000 MILLIGRAMS ORAL TWICE A DAY Potassium Chloride 20MEQ Oral Tablet, Extended Release 12/08/2023 Unknown ORAL THREE TIMES A DAY 40 MEQ 1237091 RxNorm TAKE 40 MEQ ORAL THREE TIMES A DAY Rosuvastatin 10MG Oral Tablet 12/08/2023 Unknown ORAL AT BEDTIME 10 MILLIGRAMS 403920 RxNorm TAKE 10 MILLIGRAMS ORAL AT BEDTIME Triamcinolone Acetonide 0.5% Topical application Cream 12/08/2023 Unknown TOPIC AL APPLI CATIO N NEEDED 3 TIMES A DAY 1 unit(s) 9266956 RxNorm 1 EACH TOPICAL APPLICATION NEEDED 3 TIMES A DAY amLODIPine Besylate 10MG Oral Tablet 12/08/2023 Unknown ORAL ONCE A DAY 10 MILLIGRAMS 910841 RxNorm TAKE 10 MILLIGRAMS ORAL ONCE A DAY metFORMIN HCl 1000MG Oral Tablet 12/08/2023 Unknown ORAL TWICE A DAY 1000 MILLIGRAMS 541455 RxNorm TAKE 1000 MILLIGRAMS ORAL TWICE A DAY tadalafil 20MG Oral Tablet 12/08/2023 Unknown ORAL NEEDED DAILY 20 MILLIGRAMS 3619653 RxNorm TAKE 20 MILLIGRAMS ORAL NEEDED DAILY [...] de Code System No Known Allergies Active [id number] [facility] Plan of Treatment Carpal Tunnel Release L 12/08/2023 Cubital Tunnel Release R 03/21/2024 Encounters Encounter Diagnosis Start Date Code Code Sys tem Carpal tunnel syndrome, bilateral upper limbs 10/20/19 SNOMED-CT Personal Care Team Section Performer Name Performer Role Active Date Inactive Da te
--- OUTSIDE RECORDS SUMMARY | 2024-07-26 12:29 | XMS_ITS | Data Portability ---
Author Organization [facility], [address] [place] [address] Neurology (CT) Address [address] [place] [id number] Care Team Providers Care Chocolate Maker Name Role Phone GRAZYNA ZALDIVAR Primary Care Provider [phone] [facility] Referring Provider Assessment Encounter Date Assessment Date Assessment LastModified by Organization Details LastModified Time 01/26/2024 01/26/2024 History: Oz romo s a 81-lwgr-cmw-male who returns for follow-up. It is his right carpal tunnel and cubital tunnel possibly. 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 He has had a couple nerve tests, one by Dr. Felix in the past as well as one from [facility] a number of years ago. He was told not to do anything with the Parsonage Sepulveda. He says he is really bothered by cold or heat on his right arm. He cannot sleep sometimes because of it. He had his left carpal tunnel release by myself a few months ago and he has done very well with this. Physical Examination: He has atrophy of the right hand and no atrophy of the left hand. The left carpal tunnel incision is well healed. Mild decreased sensation in the right hand. Positive cubital tunnel Tinel s test on the right side and a mildly positive carpal tunnel compression test on the right side. Assessment: 1. 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 2. Status post left carpal tunnel release. Plan: Clinical findings were discussed with the patient. I recommended an EMG nerve conduction test of the right upper extremity. He will follow up after the nerve test to discuss treatment options. anc Not available 01/26/2024 11:48:08 02/09/2024 02/09/2024 History: Oz returns for follow-up. He says overall his left hand is doing much better after his left carpal tunnel release. He is here to review his nerve test on his right upper extremity. Once again, he had Parsonage Sepulveda some years ago. It has stabilized at this point, but he has a lot of nerve symptoms of his right arm, especially through the elbow. He also has symptoms in his hand as well to some degree. He says that if the air hits it incorrectly, it does cause increased discomfort. He has tried therapy exercises as well. Physical Examination: He has interosseous atrophy of his right hand. He has a mildly positive cubital tunnel test and carpal tunnel compression test on the right side. He has a well healed left carpal tunnel incision on the left side. EMG nerve conduction test of his right upper extremity were independently reviewed from Dr. Felix s office and shows moderate right carpal tunnel and mild right cubital tunnel syndrome. Assessment: 1. Moderate right carpal tunnel syndrome. 2. Right cubital tunnel syndrome. 3. Status post left carpal tunnel release. 4. History of Parsonage Sepulveda Syndrome. Plan: Clinical findings were discussed with the patient. 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 He does have some abnormal findings on exam as well as his nerve test. I therefore recommended a right open carpal tunnel and cubital tunnel release. The risks, benefits, and alternatives of surgery, including but not limited to infection, wound healing problems, stiffness of his elbow, continued elbow electrical sensation and pain were discussed in detail. He was aware of the risks and wished to proceed. anc Not available 02/09/2024 14:01:55 03/21/2024 03/21/2024 Preoperative diagnosis: Right carpal and cubital tunnel syndrome. Postoperative diagnosis: Right carpal and cubital tunnel syndrome. Procedure: Right carpal and cubital tunnel release. Surgeon: Yossi Arguello M.D. Admin Secretary: None. Anesthesia: Local with sedation. Estimated blood loss: Minimal. Complications: None. Intraoperative findings: Severe compression of the median nerve at the carpal tunnel due to a thickened transverse carpal ligament. Compression of the ulnar nerve at the cubital tunnel. Brief history and physical examination: The patient has a long-standing history of right hand numbness and tingling. They have failed conservative measures. They wish to proceed with a right carpal and cubital tunnel release. The risks, benefits and alternatives of surgery including but not limited to infection, wound problems, thenar eminence pain, continued numbness and tingling, nerve injury and bleeding were discussed in detail. They expressed understanding and wished to proceed. They signed the informed consent. The patient did have a history of Parsonage Sepulveda which may effect his outcome. Procedure: Patient signed the informed consent and the right upper extremity. They were brought back to the operative suite. There were given light sedation. The right upper extremity was then prepped and draped in the normal sterile fashion. A timeout was called and site and side were verified. A longitudinal incision was marked over the radial border of the fourth digit, ulnar to the thenar eminence, proximal to Maher's cardinal line, and distal to the wrist crease. The incision was pre-injected with half percent Marcaine. The limb was exsanguinated and tourniquet inflated to 250 millimeters mercury. The incision was made through skin and subcutaneous tissue with a 15 blade scalpel. Send retractors were brought in and as well as a Ragnell retractor. The palmar fascia was split longitudinally with a 15 blade scalpel. The transverse carpal ligament was split with a 15 blade scalpel down to the level of the carpal canal. A Littler scissors was used to release the transverse carpal ligament distally to the level of the fat pad and proximally into the antebrachial fascia. There was no intracanal mass. The medial elbow incision was marked just posterior to the medial epicondyles. It was pre-injected with Marcaine with epinephrine. The incision was made through skin and subcutaneous tissue with a knife. Blunt dissection was performed on to level of the cubital tunnel. The cubital tunnel was noted to be thickened and release with Littler scissors. We released the fascia overlying the flexor carpi ulnaris and the ulnar nerve. There is compression of the ulnar nerve at the cubital tunnel. We released the intermuscular septum. The tourniquet was let down. Bovie electrocautery was used to coagulate all bleeding vessels. The elbow incision was closed with 3-0 undyed Vicryl and 4-0 Monocryl. Steri-Strips were applied. The wrist wound was closed with 4-0 nylon suture in a horizontal mattress fashion. Adaptic, fluffs, web roll and Cy wrap were applied. The patient returned to the recovery room in stable condition. All sponge, instrument and needle counts were correct. Disposition: Pain management: Vxvb-pny-wbwxske medications for pain. Dressing: Keep the dressing on for 2 days and then allowed to shower. Place a Band-Aid over the incision. Do not soak the wound for approximately 2 weeks. Follow-up: Follow-up in 2 weeks for suture removal at the wrist. Home physical therapy exercises: They may begin range of motion exercises of the fingers immediately postoperatively. Sling as needed. [email or web address] Not available 03/21/2024 09:52:31 04/05/2024 04/05/2024 History: Oz returns for follow-up of his right wrist and elbow. He is doing very well. Much better than anticipated. He still has the P[place]age Sepulveda issues, but his overall pain is much better at night. He is also having significant relief on the left side as well. Physical Examination: The incisions are well healed about the right wrist and right elbow. Full range of motion of the bilateral wrists and elbows. He still has the atrophy of the interosseous muscles, as expected with his history of Parsonage Sepulveda Syndrome. His left wrist incision is also well healed. Assessment: 1. Status post right carpal and cubital tunnel release. 2. Status post left carpal tunnel release. 3. History of right P[place]age Sepulveda Syndrome. Plan: Clinical findings were discussed with the patient. I recommended conservative management of his right wrist and elbow with home exercises. We talked about it taking a while for the skin issues to recover with regard to pushing off things. If he has issues going forward, I am happy to see him back as needed. anc Not available 04/05/2024 11:57:19 Plan of Treatment Reminders Order Date Submit Date Provider Last Modified By Organization Details Last Modified Time Details Appointments None record ed. Lab None record ed. Referral None record ed. Procedures None record ed. Surgeries None record ed. Imaging None record ed. Medication Orders None record ed. Patient TargetsNo targets recorded. Patient InstructionsNo instructions recorded. Reason for Referral None Reported. Results Created Date Observation Date Name Description Value Unit Range Abnormal Flag Note LastModifiedBy Organization Detail LastModifiedTime 02/03/20 24 elect romyo gram + nerve condu ction study No observ ation record ed. [email or web address] Not Available 2023 16:34:52 Result Notes None recorded. Problems Name Problem SNOMED Code Status Onset Date Resolution Date Notes Provider Name and Address Organization Details Recorded Time Right P[place]age Sepulveda syndrome 9444733471127 9102 Active 2023 Yossi Arguello MD [address] [place] [address], [phone], [facility] 4 09:02:22 Ulnar nerve entrapment at elbow 461260895 Active 2023 Yossi Arguello MD [address] [place] [address], [phone], [facility] 4 09:03:07 Ulnar nerve entrapment at elbow 705525775 Active 2023 Yossi Arguello MD [address] [place] [address], [phone], [facility] 4 08:20:01 Carpal tunnel syndrome of left wrist 5833313003945 02 Active 2023 Kathleen Felix MD [address] [place] [address], [address], [facility] 4 11:39:58 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 Procedures Surgical History Date Name Laterality Status Provider Name and Address Organization Details Recorded Time 03/21/20 24 decompression of ulnar nerve at elbow completed Yossi Arguello MD [address] [place] [address], [phone], [facility] 03/21/2024 09:22:44 03/21/20 24 decompression of median nerve completed Yossi Arguello MD [address] [place] [address], [phone], [facility] 03/21/2024 09:23:05 01/28/20 24 SC EMG Procedure completed Debra Ross [facility] 01/28/2024 16:08:39 12/08/19 24 SC Operative Report completed Yossi Arguello MD [address] [place] [address], [phone], [facility] 12/08/2023 08:41:44 12/08/19 24 decompression of median nerve completed Yossi Arguello MD [address] [place] [address], [phone], [facility] 12/08/2023 08:42:30 10/01/19 24 SC EMG Procedure completed Kathleen Felix MD [address] [place] [address], [phone], [facility] 10/01/2023 18:54:51 Colonoscopy with biopsy completed Not Available Health Note 10/18/2023 12:43:49 Removal of tonsils completed Not Available Health Note 10/18/2023 12:43:49 Imaging Results Imaging Date Name Status LastModified by Organization Details LastModified Time 02/03/2024 electromyogram + nerve conduction study completed [email or web address] Information not available 02/06/2024 16:34:52 Procedure Notes None recorded. Medical Equipment None Reported. Allergies No known drug allergies Medications Name Sig Start Date Stop Date Status Note LastModified by Organization Details LastModified Time metoprolol tartrate 100 mg tablet active Not Available Not Available Not Available Lantus U-100 Insulin 100 unit/mL subcutaneous solution active Not Available Not Available Not Available chlorthalidone 25 mg tablet active Not Available Not Available Not Available potassium chloride ER 20 mEq tablet,extended release(/ st) active Not Available Not Available Not Available amlodipine 10 mg tablet active Not Available Not Available Not Available gemfibrozil 600 mg tablet active Not Available Not Available No t Available metformin 1,000 mg tablet active Not Available Not Available No t Available lisinopril 40 mg tablet active Not Available Not Available Not Available esomeprazole magnesium 20 mg capsule,delayed release active Not Available Not Available Not Available rosuvastatin 10 mg tablet active Not Available Not Available No t Available tadalafil 20 mg tablet active Not Available Not Available Not Available Jardiance 25 mg tablet active Not Available Not Available Not Available Droplet Insulin Syringe 1 mL 31 gauge x 5/16 active Not Available Not Availabl e Not Available Mounjaro 5 mg/0.5 mL subcutaneous pen injector active Not Available Not Available Not Available Mounjaro 2.5 mg/0.5 mL subcutaneous pen injector active Not Available Not Available Not Available Vitals Date Recorded Body height Body mass index (BMI) Body weight Heart rate Oxygen saturation Oxygen saturation in Arterial blood by Pulse oximetry Systolic blood pressure Diastolic blood pressure Provider Name and Address Organization Details Last Updated DateTime 4 180.34 cm 30 kg/m2 24792.3 6 g 68 /min 98 % 98 % 131 mm[Hg] 74 mm[Hg] [facility] 4 10:30:43 Date Recorded Body height Body mass index (BMI) Body weight Heart rate Oxygen saturation Oxygen saturation in Arterial blood by Pulse oximetry Systolic blood pressure Diastolic blood pressure Provider Name and Address Organization Details Last Updated DateTime 4 180.34 cm 29.3 kg/m2 32996.4 g 67 /min 98 % 98 % 106 mm[Hg] 69 mm[Hg] [facility] 4 10:31:11 Date Recorded Body height Body mass index (BMI) Body weight Heart rate Oxygen saturation Oxygen saturation in Arterial blood by Pulse oximetry Systolic blood pressure Diastolic blood pressure Provider Name and Address Organization Details Last Updated DateTime 4 180.34 cm 29.3 kg/m2 56637.4 g 64 /min 98 % 98 % 127 mm[Hg] 54 mm[Hg] [facility] 4 08:55:03 Social History Question Answer Notes LastModified by Organizat ion Details LastModified Time Tobacco Smoking Status [facility] 01/26/2024 10:31:03 Do You Have An Advance Directive? Yes [email or web address] Information not available 10/18/2023 What Is Your Level Of Alcohol Consumption? None [email or web address] Information not available 10/18/2023 What Is Your Level Of Caffeine Consumption? Heavy [email or web address] Information not available 10/18/2023 What Is Your Code Status? Full Code [email or web address] Information not available 10/18/2023 Are You Currently Employed? No [email or web address] Information not available 10/18/2023 Which Illicit Or Recreational Drugs Have You Used? 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 1-2 Times Per Week [email or web address] Information not available 10/18/2023 Do You Have A Medical Power Of Mutual Fund Sales Agent? Yes [email or web address] Information not available 10/18/2023 What Was The Date Of Your Most Recent Tobacco Screening? 10/20/2023 [email or web address] Information not available 10/18/2023 What Is Your Relationship Status? [email or web address] Information not available 10/18/2023 Do You Use Any Illicit Or Recreational Drugs? Yes [email or web address] Information not available 10/18/2023 Sex: Unknown Functional Status Question Answer Note LastModified by Organizat ion Details LastModified Time What is your exercise level? Occasional [email or web address] Information not available 10/18/2023 Mental Status None recorded. Family History Relationship Description Onset Age of this Age Resolved Age Notes LastModified by Organization Details LastModified Time Mother Arthritis [email or web address] Not available 10/18/2023 12:43:48 Mother Hypertensive disorder [email or web address] Not available 2023 12:43:48 Mother Hypercholest erolemia [email or web address] Not available 2023 12:43:48 Mother Disorder of thyroid gland [email or web address] Not available 2023 12:43:48 Maternal Grandmother Arthritis [email or web address] Not available 09/26 12:43:48 Maternal Grandmother Diabetes mellitus [email or web address] Not available 2023 12:43:48 Maternal Grandmother Hypertensive disorder [email or web address] Not available 2023 12:43:48 Maternal Grandmother Kidney disease [email or web address] Not available 2023 12:43:48 Sister Family history of malignant neoplasm [email or web address] Not available 2023 12:43:48 Sister Heart disease [email or web address] Not available 2023 12:43:48 Sister Hypertensive disorder [email or web address] Not available 2023 12:43:48 Father Heart disease [email or web address] Not available 2023 12:43:48 Father Hypertensive disorder [email or web address] Not available 2023 12:43:48 Father Hypercholest erolemia [email or web address] Not available 2023 12:43:48 Father Cerebrovascu lar accident [email or web address] Not available 12:43:48 Medical History Condition Response Diabetes Y Anxiety Disorder N Bleeding Disorder N Attention-deficit Hyperactivity Disorder N High Blood Pressure Y Arthritis N Hyperlipidemia Y Cancer N Thyroid Problems N Stroke N Asthma N COPD N Depression N Anemia N Seizures N Heart Disease N Fibromyalgia N Osteoporosis N Kidney Disease N Past Encounters Encounter ID Performer Location Encounter Start Date Encounter Closed Date Diagnosis/Indication Diagnosis SNOMED-CT Code Diagnosis ICD10 Code Diagnosis Note [id number] Kathleen Felix MD [facility] Specialty Neurology (CT) [address] [place] [address] 10/01/2023 10:48:09 10/02/2023 14:30:24 Carpal tunnel syndrome of left wrist 4347126574 15138 G56.02 [id number] Yossi Arguello MD [facility] Orthopedi cs ([place]) [address] [place] [address] 10/20/2023 12:17:27 10/20/2023 13:12:44 Carpal tunnel syndrome of left wrist 2052744001 49312 G56.02 Neuralgic amyotrophy 266 68675 G54.5 Additional diagnosis detail: Parsonage- Sepulveda syndrome Carpal rudolph luna syndrome of right wrist 5828995089 48296 G56.01 Additional diagnosis detail: Right carpal tunnel syndrome [id number] MD Jj Renee [facility] [place] [address] 12/08/2023 08:37:14 12/08/2023 15:07:32 [id number] [facility] ([place] [place] [address] 12/22/2023 08:48:27 12/22/2023 09:03:53 Carpal tunnel syndrome of left wrist 5088981624 84951 G56.02 Carpal rudolph luna syndrome of right wrist 2039099699 32292 G56.01 Additional diagnosis detail: Right carpal tunnel syndrome [id number] Yossi Arguello MD [facility] Orthopedi (CT) [place] [address] 01/26/2024 10:24:52 01/26/2024 10:40:48 Ulnar nerve entrapment at elbow 687243885 G56.21 Additional diagnosis detail: Ulnar nerve entrapment at right elbow Carpal rudolph luna syndrome of right wrist 8021895818 13274 G56.01 Additional diagnosis detail: Right carpal tunnel syndrome [id number] Kathleen Felix MD [facility] Specialty Neurology (CT) [place] [address] 01/28/2024 09:13:01 01/29/2024 07:07:22 Carpal tunnel syndrome of right wrist 8186112834 05531 G56.01 Ulnar nerv e entrapment at elbow 939065045 G56.21 [id number] Yossi Arguello MD [facility] ([place]) [place] [address] 02/09/2024 10:18:17 02/09/2024 10:50:12 Ulnar nerve entrapment at elbow 220225020 G56.21 Additional diagnosis detail: Ulnar nerve entrapment at right elbow Carpal rudolph luna syndrome of right wrist 9887334178 77814 G56.01 Additional diagnosis detail: Right carpal tunnel syndrome Right Pars onage Sepulveda syndrome 2027661437 2678090 G54.5 [id number] MD Jj Renee [facility] [place] [address] 03/21/2024 09:31:40 03/21/2024 09:52:39 [id number] Yossi Arguello MD [facility] Orthopedi (CT) [facility] [place] [address] 04/05/2024 08:50:00 04/05/2024 09:05:28 Ulnar nerve entrapment at elbow 921426782 G56.21 Additional diagnosis detail: Ulnar nerve entrapment at right elbow Carpal rudolph luna syndrome of right wrist 1992284648 91155 G56.01 Additional diagnosis detail: Right carpal tunnel syndrome Right Pars onage Sepulveda syndrome 9038235557 0717287 G54.5 Carpal rudolph luna syndrome of left wrist 1262851351 60333 G56.02 Health Concerns Section Related Observation LastModified by Organization Detai ls LastModified Time None Recorded Concern Status LastModified by Organization Details LastModified Time None Recorded Advance Directives Directive Y: Payers Encounter Date Sequence Insurance Name Policy Number Policy An Covered Member ID An Member ID Guarantor Name 01/26/2024 1 [employer] (MEDICARE REPLACEMENT/A DVANTAGE - PPO) [id number] Oz Strope [id number] Oz Strope 01/26/2024 2 [place] Oz Strope [id number] Oz Strope 01/28/2024 1 [employer] (MEDICARE REPLACEMENT/A DVANTAGE - PPO) [id number] Oz Strope [id number] Oz Strope 01/28/2024 2 [place] Oz Strope [id number] Oz Strope 02/09/2024 1 [employer] (MEDICARE REPLACEMENT/A DVANTAGE - PPO) [id number] Oz Strope [id number] Oz Strope 02/09/2024 2 [place] Oz Strope [id number] Oz Strope 03/21/2024 1 [employer] (MEDICARE REPLACEMENT/A DVANTAGE - PPO) [id number] Oz Strope [id number] Oz Strope 04/05/2024 1 [employer] (MEDICARE REPLACEMENT/A DVANTAGE - PPO) [id number] Oz Brandy [id number] Oz Nava Notes Date Note Type Note Provider Name and Address Organization Details Recorded Time 02/09/2024 text/html Oz Bailey a 68 year oldmalepresenting for care. Yossi Arguello MD [facility] [place] [address], [phone], [facility] 02/10/2024 09:09:37 04/05/2024 text/html Oz Bailey a 68 year oldmalepresenting for care. Yossi Arguello MD [address] [place] [address], [address], [facility] 04/06/2024 09:00:23
--- OUTSIDE RECORDS SUMMARY | 2024-07-26 12:29 | XMS_ITS ---
Author Organization Unknown Address [address] [place] [address] [phone] Phone Care Team Providers Care Cancer Registrar Name Role Phone LAZARO Mcdaniel Attending Unavailable [...] em Smoking History Never smoker (Never Smoked) [id number] SNOMED CT Sex Male Medications Medication Start Date End Date Route Frequency Dose Code Code System Medication Instructions Home Meds Amitriptyline HCl 50MG Oral Tablet 12/08/2023 03/15/2024 ORAL AT BEDTIME 25 MILLIGRAMS 312108 RxNorm TAKE 25 MILLIGRAMS ORAL AT BEDTIME Aspirin 81MG Oral Tablet, Enteric Coated 12/08/2023 Unknown ORAL ONCE A DAY 81 MILLIGRAMS 238115 RxNorm TAKE 81 MILLIGRAMS ORAL ONCE A DAY Chlorthalidone 25MG Oral Tablet 12/08/2023 Unknown ORAL ONCE A DAY 25 MILLIGRAMS 235468 RxNorm TAKE 25 MILLIGRAMS ORAL ONCE A DAY E-400-Clear 400 IU Oral Capsule 12/08/2023 Unknown ORAL ONCE A DAY 400 IU 563455 RxNorm TAKE 400 IU ORAL ONCE A DAY Esomeprazole Magnesium 20MG Oral Capsule, Delayed Release 12/08/2023 Unknown ORAL ONCE A DAY 20 MILLIGRAMS 855520 RxNorm TAKE 20 MILLIGRAMS ORAL ONCE A DAY Famotidine 10 10MG Oral Tablet 12/08/2023 Unknown ORAL ONCE A DAY 10 MILLIGRAMS RxNorm TAKE 10 MILLIGRAMS ORAL ONCE A DAY Fexofenadine HCl 180MG Oral Tablet 12/08/2023 Unknown ORAL NEEDED DAILY 180 MILLIGRAMS 867010 RxNorm TAKE 180 MILLIGRAMS ORAL NEEDED DAILY Gemfibrozil 600MG Oral Tablet 12/08/2023 Unknown ORAL TWICE A DAY 600 MILLIGRAMS 515623 RxNorm TAKE 600 MILLIGRAMS ORAL TWICE A DAY Jardiance 25MG Oral Tablet 12/08/2023 Unknown ORAL ONCE A DAY 25 MILLIGRAMS 6819574 RxNorm TAKE 25 MILLIGRAMS ORAL ONCE A DAY Lantus 100U/1ML Subcutaneous Solution 12/08/2023 Unknown SUBCU TANEO US AT BEDTIME 1 unit(s) 300564 RxNorm INJECT INTO 1 EACH SUBCUTANEOU S AT BEDTIME Lisinopril 40MG Oral Tablet 12/08/2023 Unknown ORAL ONCE A DAY 80 MILLIGRAMS 604306 RxNorm TAKE 80 MILLIGRAMS ORAL ONCE A DAY Meclizine HCl 25MG Oral Tablet 12/08/2023 Unknown ORAL NEEDED 3 TIMES A DAY 25 MILLIGRAMS 607905 RxNorm TAKE 25 MILLIGRAMS ORAL NEEDED 3 TIMES A DAY Metoprolol Tartrate 100MG Oral Tablet 12/08/2023 Unknown ORAL TWICE A DAY 100 MILLIGRAMS 917260 RxNorm TAKE 100 MILLIGRAMS ORAL TWICE A DAY Mounjaro 5 MG/0.5 ML Subcutaneous Solution 12/08/2023 Unknown SUBCU TANEO US ONCE A WEEK 1 unit(s) 5374650 RxNorm INJECT INTO 1 EACH SUBCUTANEOU S ONCE A WEEK Ocuvite Adult 50+ 150 MG-1 MG-6 MG-150 MG-30 INTERNATIONAL UNITS-9 MG Oral Capsule, Liquid Filled 12/08/2023 Unknown ORAL ONCE A DAY 1 unit(s) RxNorm TAKE 1 EACH ORAL ONCE A DAY [place]-3 1000MG Oral Capsule, Liquid Filled 12/08/2023 Unknown ORAL TWICE A DAY 2000 MILLIGRAMS 488480 RxNorm TAKE 2000 MILLIGRAMS ORAL TWICE A DAY Potassium Chloride 20MEQ Oral Tablet, Extended Release 12/08/2023 Unknown ORAL THREE TIMES A DAY 40 MEQ 5839908 RxNorm TAKE 40 MEQ ORAL THREE TIMES A DAY Rosuvastatin 10MG Oral Tablet 12/08/2023 Unknown ORAL AT BEDTIME 10 MILLIGRAMS 426520 RxNorm TAKE 10 MILLIGRAMS ORAL AT BEDTIME Triamcinolone Acetonide 0.5% Topical application Cream 12/08/2023 Unknown TOPIC AL APPLI CATIO N NEEDED 3 TIMES A DAY 1 unit(s) 6150660 RxNorm 1 EACH TOPICAL APPLICATION NEEDED 3 TIMES A DAY amLODIPine Besylate 10MG Oral Tablet 12/08/2023 Unknown ORAL ONCE A DAY 10 MILLIGRAMS 637328 RxNorm TAKE 10 MILLIGRAMS ORAL ONCE A DAY metFORMIN HCl 1000MG Oral Tablet 12/08/2023 Unknown ORAL TWICE A DAY 1000 MILLIGRAMS 501548 RxNorm TAKE 1000 MILLIGRAMS ORAL TWICE A DAY tadalafil 20MG Oral Tablet 12/08/2023 Unknown ORAL NEEDED DAILY 20 MILLIGRAMS 5296293 RxNorm TAKE 20 MILLIGRAMS ORAL NEEDED DAILY [...] de Code System No Known Allergies Active [id number] [facility] Plan of Treatment Carpal Tunnel Release L 12/08/2023 Cubital Tunnel Release R 03/21/2024 Encounters Encounter Diagnosis Start Date Code Code Sys tem Carpal tunnel syndrome, right upper limb 02/09/2024 SNOMED-CT Personal Care Team Section Performer Name Performer Role Active Date Inactive Da te
--- OUTSIDE RECORDS SUMMARY | 2024-07-26 12:30 | XMS_ITS ---
Author Organization Unknown Address [address] [place] [address] [phone] Phone Care Team Providers Care Analytical Chemist Name Role Phone LAZARO Mcdaniel Attending Unavailable [...] COMPREHENSIVE METABOLIC PANE L - Collect Date/Time: 04/05/2024 08:30 [facility] ID: [id number] [address] [place], [place], [id number] LOINC: 64151-4 Test Value Unit Reference Range Code Code System Flag FASTING YES BUN 26 mg/dL L=7 H=20 3094-0 LOINC H CREATININE 1.10 mg/dL L=0.66 H=1.25 2160-0 LOINC GLUCOSE 78 mg/dL L=74 H=106 2345-7 LOINC SODIUM 143 mmol/L L=132 H=144 2951-2 LOINC POTASSIUM 3.4 mmol/L L=3.5 H=5.1 2823-3 LOINC L CHLORIDE 100 mmol/L L=98 H=107 2075-0 LOINC CO2 30.0 mmol/L L=22.0 H=30.0 2028-9 LOINC ANION GAP 16 L=10 H=20 42299-3 LOINC OSMOLALITY 300 mOs/kG L=280 H=296 69093-7 LOINC H BUN/CREAT 23.6 3097-3 LOINC CALCIUM 9.6 mg/dL L=8.3 H=10.5 33266-5 LOINC AST 24 U/L L=15 H=46 1920-8 LOINC ALT 20 U/L L=9 H=72 1742-6 LOINC ALKALINE PHOS 96 U/L L=38 H=126 6768-6 LOINC TOTAL BILI 0.6 mg/dL L=0.2 H=1.3 1975-2 LOINC ALBUMIN 5.4 G/dL L=3.5 H=5.0 1751-7 LOINC H TOTAL PROTEIN 8.4 g/L L=6.3 H=8.2 2885-2 LOINC H A/G RATIO 1.8 97418-7 LOINC AGE 68 34560-6 LOINC eGFR NON-AFR 71 ml/min eGFR AFR AMER 86 ml/min LIPID PANEL - Collect Date/T shiraz: 04/05/2024 08:30 [facility] ID: [id number] [address] [place], [place], [id number] LOINC: 78356-6 Test Value Unit Reference Range Code Code System Flag FASTING YES CHOLESTEROL 145 mg/dL L=0 H=200 3-3 LOINC TRIGLYCERIDE 232 mg/dL L=0 H=150 2571-8 LOINC H HDL 37 mg/dL L=40 H=60 5-9 LOINC L LDL 59 mg/dL 2088-1 LOINC Social History Type Status Start Date End Date Code Code Syst em Smoking History Never smoker (Never Smoked) [id number] SNOMED CT Sex Male Medications Medication Start Date End Date Route Frequency Dose Code Code System Medication Instructions Home Meds Aspirin 81MG Oral Tablet, Enteric Coated 12/08/2023 Unknown ORAL ONCE A DAY 81 MILLIGRAMS 150025 RxNorm TAKE 81 MILLIGRAMS ORAL ONCE A DAY Chlorthalid one 25MG Oral Tablet 12/08/2023 Unknown ORAL ONCE A DAY 25 MILLIGRAMS 645137 RxNorm TAKE 25 MILLIGRAMS ORAL ONCE A DAY E-400-Clear 400 IU Oral Capsule 12/08/2023 Unknown ORAL ONCE A DAY 400 IU 420586 RxNorm TAKE 400 IU ORAL ONCE A DAY Esomeprazol e Magnesium 20MG Oral Capsule, Delayed Release 12/08/2023 Unknown ORAL ONCE A DAY 20 MILLIGRAMS 266414 RxNorm TAKE 20 MILLIGRAMS ORAL ONCE A DAY Famotidine 10 10MG Oral Tablet 12/08/2023 Unknown ORAL ONCE A DAY 10 MILLIGRAMS RxNorm TAKE 10 MILLIGRAMS ORAL ONCE A DAY Fexofenadin e HCl 180MG Oral Tablet 12/08/2023 Unknown ORAL NEEDED DAILY 180 MILLIGRAMS 370372 RxNorm TAKE 180 MILLIGRAMS ORAL NEEDED DAILY Gemfibrozil 600MG Oral Tablet 12/08/2023 Unknown ORAL TWICE A DAY 600 MILLIGRAMS 396459 RxNorm TAKE 600 MILLIGRAMS ORAL TWICE A DAY Jardiance 25MG Oral Tablet 12/08/2023 Unknown ORAL ONCE A DAY 25 MILLIGRAMS 1113194 RxNorm TAKE 25 MILLIGRAMS ORAL ONCE A DAY Lantus 100U/1ML Subcutaneou s Solution 12/08/2023 Unknown SUBCUTAN EOUS AT BEDTIME 1 unit(s) 205105 RxNorm INJECT INTO 1 EACH SUBCUTANEOUS AT BEDTIME Lisinopril 40MG Oral Tablet 12/08/2023 Unknown ORAL ONCE A DAY 80 MILLIGRAMS 824545 RxNorm TAKE 80 MILLIGRAMS ORAL ONCE A DAY Meclizine HCl 25MG Oral Tablet 12/08/2023 Unknown ORAL NEEDED 3 TIMES A DAY 25 MILLIGRAMS 517621 RxNorm TAKE 25 MILLIGRAMS ORAL NEEDED 3 TIMES A DAY Metoprolol Tartrate 100MG Oral Tablet 12/08/2023 Unknown ORAL TWICE A DAY 100 MILLIGRAMS 029772 RxNorm TAKE 100 MILLIGRAMS ORAL TWICE A DAY Mounjaro 5 MG/0.5 ML Subcutaneou s Solution 12/08/2023 Unknown SUBCUTAN EOUS ONCE A WEEK 1 unit(s) 5261391 RxNorm INJECT INTO 1 EACH SUBCUTANEOUS ONCE A WEEK Ocuvite Adult 50+ 150 MG-1 MG-6 MG-150 MG-30 INTERNATION AL UNITS-9 MG Oral Capsule, Liquid Filled 12/08/2023 Unknown ORAL ONCE A DAY 1 unit(s) RxNorm TAKE 1 EACH ORAL ONCE A DAY [place]-3 1000MG Oral Capsule, Liquid Filled 12/08/2023 Unknown ORAL TWICE A DAY 2000 MILLIGRAMS 742502 RxNorm TAKE 2000 MILLIGRAMS ORAL TWICE A DAY Potassium Chloride 20MEQ Oral Tablet, Extended Release 12/08/2023 Unknown ORAL THREE TIMES A DAY 40 MEQ 3373722 RxNorm TAKE 40 MEQ ORAL THREE TIMES A DAY Rosuvastati n 10MG Oral Tablet 12/08/2023 Unknown ORAL AT BEDTIME 10 MILLIGRAMS 545328 RxNorm TAKE 10 MILLIGRAMS ORAL AT BEDTIME Triamcinolo ne Acetonide 0.5% Topical application Cream 12/08/2023 Unknown TOPICAL APPLICAT ION NEEDED 3 TIMES A DAY 1 unit(s) 1317128 RxNorm 1 EACH TOPICAL APPLICATION NEEDED 3 TIMES A DAY amLODIPine Besylate 10MG Oral Tablet 12/08/2023 Unknown ORAL ONCE A DAY 10 MILLIGRAMS 696627 RxNorm TAKE 10 MILLIGRAMS ORAL ONCE A DAY metFORMIN HCl 1000MG Oral Tablet 12/08/2023 Unknown ORAL TWICE A DAY 1000 MILLIGRAMS 143079 RxNorm TAKE 1000 MILLIGRAMS ORAL TWICE A DAY tadalafil 20MG Oral Tablet 12/08/2023 Unknown ORAL NEEDED DAILY 20 MILLIGRAMS 2269978 RxNorm TAKE 20 MILLIGRAMS ORAL NEEDED DAILY [...] de Code System No Known Allergies Active [id number] [facility]-CT Plan of Treatment Carpal Tunnel Release L 12/08/2023 Cubital Tunnel Release R 03/21/2024 Encounters Encounter Diagnosis Start Date Code Code Sys tem Encounter for surgical after care following surgery on the nervous system 04/05/2024 SNOMED-CT Personal Care Team Section Performer Name Performer Role Active Date Inactive Da jayro
--- OUTSIDE RECORDS SUMMARY | 2024-07-26 12:30 | XMS_ITS ---
Author Organization Unknown Address [address] [place] [address] [phone] Phone Care Team Providers Care Accounting Recruiter Name Role Phone BLAKE ROSS Attending Unavailable [...] em Smoking History Never smoker (Never Smoked) [id number] SNOMED CT Sex Male Medications Medication Start Date End Date Route Frequency Dose Code Code System Medication Instructions Home Meds Aspirin 81MG Oral Tablet, Enteric Coated 12/08/2023 Unknown ORAL ONCE A DAY 81 MILLIGRAMS 584544 RxNorm TAKE 81 MILLIGRAMS ORAL ONCE A DAY Chlorthalid one 25MG Oral Tablet 12/08/2023 Unknown ORAL ONCE A DAY 25 MILLIGRAMS 458306 RxNorm TAKE 25 MILLIGRAMS ORAL ONCE A DAY E-400-Clear 400 IU Oral Capsule 12/08/2023 Unknown ORAL ONCE A DAY 400 IU 259298 RxNorm TAKE 400 IU ORAL ONCE A DAY Esomeprazol e Magnesium 20MG Oral Capsule, Delayed Release 12/08/2023 Unknown ORAL ONCE A DAY 20 MILLIGRAMS 721247 RxNorm TAKE 20 MILLIGRAMS ORAL ONCE A DAY Famotidine 10 10MG Oral Tablet 12/08/2023 Unknown ORAL ONCE A DAY 10 MILLIGRAMS RxNorm TAKE 10 MILLIGRAMS ORAL ONCE A DAY Fexofenadin e HCl 180MG Oral Tablet 12/08/2023 Unknown ORAL NEEDED DAILY 180 MILLIGRAMS 196623 RxNorm TAKE 180 MILLIGRAMS ORAL NEEDED DAILY Gemfibrozil 600MG Oral Tablet 12/08/2023 Unknown ORAL TWICE A DAY 600 MILLIGRAMS 697249 RxNorm TAKE 600 MILLIGRAMS ORAL TWICE A DAY Jardiance 25MG Oral Tablet 12/08/2023 Unknown ORAL ONCE A DAY 25 MILLIGRAMS 4846116 RxNorm TAKE 25 MILLIGRAMS ORAL ONCE A DAY Lantus 100U/1ML Subcutaneou s Solution 12/08/2023 Unknown SUBCUTAN EOUS AT BEDTIME 1 unit(s) 839880 RxNorm INJECT INTO 1 EACH SUBCUTANEOUS AT BEDTIME Lisinopril 40MG Oral Tablet 12/08/2023 Unknown ORAL ONCE A DAY 80 MILLIGRAMS 557388 RxNorm TAKE 80 MILLIGRAMS ORAL ONCE A DAY Meclizine HCl 25MG Oral Tablet 12/08/2023 Unknown ORAL NEEDED 3 TIMES A DAY 25 MILLIGRAMS 486436 RxNorm TAKE 25 MILLIGRAMS ORAL NEEDED 3 TIMES A DAY Metoprolol Tartrate 100MG Oral Tablet 12/08/2023 Unknown ORAL TWICE A DAY 100 MILLIGRAMS 337929 RxNorm TAKE 100 MILLIGRAMS ORAL TWICE A DAY Mounjaro 5 MG/0.5 ML Subcutaneou s Solution 12/08/2023 Unknown SUBCUTAN EOUS ONCE A WEEK 1 unit(s) 5986445 RxNorm INJECT INTO 1 EACH SUBCUTANEOUS ONCE A WEEK Ocuvite Adult 50+ 150 MG-1 MG-6 MG-150 MG-30 INTERNATION AL UNITS-9 MG Oral Capsule, Liquid Filled 12/08/2023 Unknown ORAL ONCE A DAY 1 unit(s) RxNorm TAKE 1 EACH ORAL ONCE A DAY [place]-3 1000MG Oral Capsule, Liquid Filled 12/08/2023 Unknown ORAL TWICE A DAY 2000 MILLIGRAMS 679568 RxNorm TAKE 2000 MILLIGRAMS ORAL TWICE A DAY Potassium Chloride 20MEQ Oral Tablet, Extended Release 12/08/2023 Unknown ORAL THREE TIMES A DAY 40 MEQ 1390052 RxNorm TAKE 40 MEQ ORAL THREE TIMES A DAY Rosuvastati n 10MG Oral Tablet 12/08/2023 Unknown ORAL AT BEDTIME 10 MILLIGRAMS 012327 RxNorm TAKE 10 MILLIGRAMS ORAL AT BEDTIME Triamcinolo ne Acetonide 0.5% Topical application Cream 12/08/2023 Unknown TOPICAL APPLICAT ION NEEDED 3 TIMES A DAY 1 unit(s) 9282671 RxNorm 1 EACH TOPICAL APPLICATION NEEDED 3 TIMES A DAY amLODIPine Besylate 10MG Oral Tablet 12/08/2023 Unknown ORAL ONCE A DAY 10 MILLIGRAMS 739648 RxNorm TAKE 10 MILLIGRAMS ORAL ONCE A DAY metFORMIN HCl 1000MG Oral Tablet 12/08/2023 Unknown ORAL TWICE A DAY 1000 MILLIGRAMS 316942 RxNorm TAKE 1000 MILLIGRAMS ORAL TWICE A DAY tadalafil 20MG Oral Tablet 12/08/2023 Unknown ORAL NEEDED DAILY 20 MILLIGRAMS 3004871 RxNorm TAKE 20 MILLIGRAMS ORAL NEEDED DAILY [...] de Code System No Known Allergies Active [id number] [facility] Plan of Treatment Carpal Tunnel Release L 12/08/2023 Cubital Tunnel Release R 03/21/2024 Encounters Encounter Diagnosis Start Date Code Code Sys tem 06/28/2024 [id number] SNOMED-CT Personal Care Team Section Performer Name Performer Role Active Date Inactive Da te
--- OUTSIDE RECORDS SUMMARY | 2024-07-26 12:30 | XMS_ITS ---
Author Organization Unknown Address [address] [place] [address] [phone] Phone Care Team Providers Care Sales Attendant Building Materials Name Role Phone LAZARO Mcdaniel Attending Unavailable BRISEYDA BRYANT CRNA Unavailable ZEN Veliz Primary Unavailable Immunization Immunization [...] mcg/0.3 mL 02/02/2024 Completed 309 CVX Results BEDSIDE GLUCOSE - Collect Da te/Time: 12/08/2023 07:47 [facility] ID: [id number] [address] [place], [place], [id number] LOINC: 88038-8 Test Value Unit Reference Range Code Code System Flag BEDSIDE GLUCOSE 86 mg/dl L=74 H=106 90157-1 LOINC BEDSIDE GLUCOSE - Collect Da te/Time: 12/08/2023 06:31 [facility] ID: [id number] [address] [place] [address], [id number] LOINC: 80094-0 Test Value Unit Reference Range Code Code System Flag BEDSIDE GLUCOSE 117 mg/dl L=74 H=106 56294-0 LOINC H Social History Type Status Start Date End Date Code Code Syst em Smoking History Never smoker (Never Smoked) [id number] SNOMED CT Sex Male Vital Signs Vital Sign Value Unit [place] Value [place] Unit Date/Time Recent/Initial? Code Code System Body Mass Index 29.99 kg/m2 12/08/2023 06:37 Most Recent 02727 -5 [facility] Body Mass Index 30.27 kg/m2 11/25/2023 09:54 Initial 09287 -5 [facility] Systolic Blood Pressure 104 mm[Hg] 12/08/2023 06:35 Initial 8480- 6 [facility] Diastolic Blood Pressure 58 mm[Hg] 12/08/2023 06:35 Initial 8462- 4 [facility] Body Surface Area 2.21 m2 12/08/2023 06:37 Most Recent 3140- 1 [facility] Body Surface Area 2.22 m2 11/25/2023 09:54 Initial 3140- 1 [facility] Height 180.340 0 cm 71.00 in 12/08/2023 06:37 Most Recent 8302- 2 [facility] Height 180.340 0 cm 71.00 in 11/25/2023 09:54 Initial 8302- 2 [facility] O2 Saturation 96 % 2023 06:35 Initial 02612 -5 [facility] Pulse 68.0 /min 12/08/2023 06:35 Initial 8867- 4 [facility] Respiration 16 /min 12/08/19 06:35 Initial 9279- 1 [facility] Temperature 36.4 Tarsha 97.5 F 12/08/19 06:35 Initial 8310- 5 [facility] Weight 97.52 kg 215.00 lbs 12/08/2023 06:37 Most Recent 65893 -7 [facility] Weight 98.43 kg 217.00 lbs 11/25/2023 09:54 Initial 49081 -7 [facility] Medications Medication Start Date End Date Route Frequency Dose Code Code System Medication Instructions Home Meds Amitriptyline HCl 50MG Oral Tablet 12/08/2023 03/15/2024 ORAL AT BEDTIME 25 MILLIGRAMS 659969 RxNorm TAKE 25 MILLIGRAMS ORAL AT BEDTIME Aspirin 81MG Oral Tablet, Enteric Coated 12/08/2023 Unknown ORAL ONCE A DAY 81 MILLIGRAMS 962965 RxNorm TAKE 81 MILLIGRAMS ORAL ONCE A DAY Chlorthalidone 25MG Oral Tablet 12/08/2023 Unknown ORAL ONCE A DAY 25 MILLIGRAMS 597732 RxNorm TAKE 25 MILLIGRAMS ORAL ONCE A DAY E-400-Clear 400 IU Oral Capsule 12/08/2023 Unknown ORAL ONCE A DAY 400 IU 208057 RxNorm TAKE 400 IU ORAL ONCE A DAY Esomeprazole Magnesium 20MG Oral Capsule, Delayed Release 12/08/2023 Unknown ORAL ONCE A DAY 20 MILLIGRAMS 845876 RxNorm TAKE 20 MILLIGRAMS ORAL ONCE A DAY Famotidine 10 10MG Oral Tablet 12/08/2023 Unknown ORAL ONCE A DAY 10 MILLIGRAMS RxNorm TAKE 10 MILLIGRAMS ORAL ONCE A DAY Fexofenadine HCl 180MG Oral Tablet 12/08/2023 Unknown ORAL NEEDED DAILY 180 MILLIGRAMS 048343 RxNorm TAKE 180 MILLIGRAMS ORAL NEEDED DAILY Gemfibrozil 600MG Oral Tablet 12/08/2023 Unknown ORAL TWICE A DAY 600 MILLIGRAMS 680959 RxNorm TAKE 600 MILLIGRAMS ORAL TWICE A DAY Jardiance 25MG Oral Tablet 12/08/2023 Unknown ORAL ONCE A DAY 25 MILLIGRAMS 6914843 RxNorm TAKE 25 MILLIGRAMS ORAL ONCE A DAY Lantus 100U/1ML Subcutaneous Solution 12/08/2023 Unknown SUBCU TANEO US AT BEDTIME 1 unit(s) 400683 RxNorm INJECT INTO 1 EACH SUBCUTANEOU S AT BEDTIME Lisinopril 40MG Oral Tablet 12/08/2023 Unknown ORAL ONCE A DAY 80 MILLIGRAMS 906506 RxNorm TAKE 80 MILLIGRAMS ORAL ONCE A DAY Meclizine HCl 25MG Oral Tablet 12/08/2023 Unknown ORAL NEEDED 3 TIMES A DAY 25 MILLIGRAMS 170393 RxNorm TAKE 25 MILLIGRAMS ORAL NEEDED 3 TIMES A DAY Metoprolol Tartrate 100MG Oral Tablet 12/08/2023 Unknown ORAL TWICE A DAY 100 MILLIGRAMS 921607 RxNorm TAKE 100 MILLIGRAMS ORAL TWICE A DAY Mounjaro 5 MG/0.5 ML Subcutaneous Solution 12/08/2023 Unknown SUBCU TANEO US ONCE A WEEK 1 unit(s) 6873425 RxNorm INJECT INTO 1 EACH SUBCUTANEOU S ONCE A WEEK Ocuvite Adult 50+ 150 MG-1 MG-6 MG-150 MG-30 INTERNATIONAL UNITS-9 MG Oral Capsule, Liquid Filled 12/08/2023 Unknown ORAL ONCE A DAY 1 unit(s) RxNorm TAKE 1 EACH ORAL ONCE A DAY [place]-3 1000MG Oral Capsule, Liquid Filled 12/08/2023 Unknown ORAL TWICE A DAY 2000 MILLIGRAMS 861230 RxNorm TAKE 2000 MILLIGRAMS ORAL TWICE A DAY Potassium Chloride 20MEQ Oral Tablet, Extended Release 12/08/2023 Unknown ORAL THREE TIMES A DAY 40 MEQ 6875282 RxNorm TAKE 40 MEQ ORAL THREE TIMES A DAY Rosuvastatin 10MG Oral Tablet 12/08/2023 Unknown ORAL AT BEDTIME 10 MILLIGRAMS 918583 RxNorm TAKE 10 MILLIGRAMS ORAL AT BEDTIME Triamcinolone Acetonide 0.5% Topical application Cream 12/08/2023 Unknown TOPIC AL APPLI CATIO N NEEDED 3 TIMES A DAY 1 unit(s) 7863782 RxNorm 1 EACH TOPICAL APPLICATION NEEDED 3 TIMES A DAY amLODIPine Besylate 10MG Oral Tablet 12/08/2023 Unknown ORAL ONCE A DAY 10 MILLIGRAMS 823768 RxNorm TAKE 10 MILLIGRAMS ORAL ONCE A DAY metFORMIN HCl 1000MG Oral Tablet 12/08/2023 Unknown ORAL TWICE A DAY 1000 MILLIGRAMS 352335 RxNorm TAKE 1000 MILLIGRAMS ORAL TWICE A DAY tadalafil 20MG Oral Tablet 12/08/2023 Unknown ORAL NEEDED DAILY 20 MILLIGRAMS 9861120 RxNorm TAKE 20 MILLIGRAMS ORAL NEEDED DAILY Hospital Discharge Instructions Should you have any questions prior to discharge, please contact a member of your healthcare team. If you have left the hospital and have any questions, please contact your primary care physician. Reason For Referral No Data Found Procedures Procedure Name Date Status Code Code Syste m Anesthesia for all procedure s on nerves, muscles, tendons, fascia, and bur 12/08/2023 completed 68880 CPT History of tonsillectomy completed [id number] SNOMEDCT Neuroplasty and/or transposi tion; median nerve at carpal tunnel; (-LT Left 12/08/2023 completed 13125 CPT Allergies and Adverse Reactions Allergy Substance Reaction Severity Start Date Concern Status Co de Code System No Known Allergies Active [id number] [facility] [employer]-CT Plan of Treatment Carpal Tunnel Release L 12/08/2023 Cubital Tunnel Release R 03/21/2024 Encounters Encounter Diagnosis Start Date Code Code Sys tem Carpal tunnel syndrome, left upper limb 12/08/2023 SNOMED-CT Personal Care Team Section Performer Name Performer Role Active Date Inactive Da te
--- OUTSIDE RECORDS SUMMARY | 2024-07-26 12:30 | XMS_ITS ---
Author Organization Unknown Address [address] [place] [phone] Phone Care Team Providers Care Molecular Spectroscopist Name Role Phone SHAMIR WHITMORE Attending Unavailable ZEN Veliz Primary Unavailable Immunization [...] mcg/0.3 mL 02/02/2024 Completed 309 CVX Results URINALYSIS w/Microscopy/C&S if indicated - Collect Date/Time: 05/27/2024 12:51 [facility] [id number] [place], [place], [phone] LOINC: 75978-4 Test Value Unit Reference Range Code Code System Flag UR SOURCE VOIDED 68791-0 LOINC COLOR YELLOW YELLOW 5778-6 LOINC CLARITY SL CLOUDY CLEAR 49511-6 LOINC SPEC GRAVITY 1.025 1.000-1.030 5811-5 LOINC PH 6.0 5.0 - 6.5 5803-2 LOINC LEUK EST NEGATIVE NEGATIVE 5799-2 LOINC NITRATE NEGATIVE NEGATIVE PROTEIN NEGATIVE NEGATIVE 5804-0 LOINC GLUCOSE 3+ NEGATIVE 73729-3 LOINC KETONES TRACE NEGATIVE 78805-7 LOINC A UROBILINOGEN 0.2 0.2 - 1.0 5818-0 LOINC BILIRUBIN NEGATIVE NEGATIVE 66855-1 LOINC BLOOD NEGATIVE NEGATIVE 33278-2 LOINC WBC 0-2 0 - 2 93850-0 LOINC RBC 0-2 0 - 2 99233-8 LOINC SQ EPITHELIAL RARE RARE-FEW BACTERIA NONE SEEN NONE SEEN 76335-0 LOINC MUCUS 1+ NONE SEEN 8247-9 LOINC YEAST NOT PRESENT NOT PRESENT 89835-9 LOINC TRICHOMONAS NOT PRESENT NOT PRESENT 94887-4 LOINC SPERMATOZOA NOT PRESENT NOT PRESENT 36013-0 LOINC CASTS PRESENT 77943-3 LOINC HYALINE 5-10/LPF NONE SEEN GRANULAR NONE SEEN WBC CAST NONE SEEN 5820-6 LOINC RBC CAST NONE SEEN 5807-3 LOINC WAXY CAST NONE SEEN 01620-9 LOINC CRYSTALS NOT PRESENT 49587-1 LOINC CULTURE? NO 8251-1 LOINC DIAGNOSIS N/A CBC W/ DIFF - Collect Date/T shiraz: 05/27/2024 11:50 [facility] [id number] [id number] [place], [place], [phone] LOINC: 17958-9 Test Value Unit Reference Range Code Code System Flag WBC 13.9 10^3uL L=4.8 H=10.8 H RBC 4.93 10^6uL L=4.60 H=6.20 HEMOGLOBIN 15.3 g/dL L=14.0 H=18.0 718-7 LOINC HEMATOCRIT 43.6 VOL% L=42.0 H=52.0 4544-3 LOINC MCV 88.4 fL L=80.0 H=94.0 MCH 31.0 pg L=27.0 H=32.0 MCHC 35.1 g/dL L=32.0 H=36.0 PLATELETS 213 10^3uL L=100 H=400 05829-0 LOINC RDW 12.2 % L=11.7 H=15.5 %GRAN 73.7 % L=40.0 H=70.0 17014-3 LOINC H %LYMPH 15.3 % L=20.0 H=45.0 736-9 LOINC L %MONO 9.0 % L=2.0 H=10.0 25393-1 LOINC %EOS 1.3 % L=0.0 H=6.0 713-8 LOINC %BASO 0.1 % L=0.0 H=3.0 706-2 LOINC #NEUT 10.2 10^3uL L=1.9 H=7.6 64153-9 LOINC H #LYMPH 2.1 10^3uL L=0.9 H=4.9 65561-6 LOINC #MONO 1.3 10^3uL L=0.1 H=0.9 28099-8 LOINC H #EOS 0.2 10^3uL L=0.0 H=0.6 712-0 LOINC #BASO 0.02 10^3uL L=0.00 H=0.10 58950-0 LOINC #IM GRANS 0.1 10^3uL L=0.0 H=7.0 44691-4 LOINC %IM GRANS 0.6 % L=0.0 H=5.0 74949-6 LOINC %NRB 0.0 L=0.0 H=0.2 39628-0 LOINC #NRB 0.000 L=0.000 H=0.012 60240-2 LOINC MANUAL DIFF NOT INDICATED RBC MORPH NOT INDICATED COMPREHENSIVE METABOLIC PANE L - Collect Date/Time: 05/27/2024 11:50 [facility] [id number] [place], [phone] LOINC: 67736-0 Test Value Unit Reference Range Code Code System Flag FASTING UNKNOWN BUN 45 mg/dL L=7 H=20 3094-0 LOINC H CREATININE 1.20 mg/dL L=0.66 H=1.25 2160-0 LOINC GLUCOSE 117 mg/dL L=74 H=106 2345-7 LOINC H SODIUM 141 mmol/L L=132 H=144 2951-2 LOINC POTASSIUM 3.1 mmol/L L=3.5 H=5.1 2823-3 LOINC L CHLORIDE 98 mmol/L L=98 H=107 2075-0 LOINC CO2 29.0 mmol/L L=22.0 H=30.0 8-9 LOINC ANION GAP 17 L=10 H=20 86298-0 LOINC OSMOLALITY 305 mOs/kG L=280 H=296 20510-5 LOINC H BUN/CREAT 37.5 3097-3 LOINC CALCIUM 9.5 mg/dL L=8.3 H=10.5 54593-9 LOINC AST 15 U/L L=15 H=46 1920-8 LOINC ALT 16 U/L L=9 H=72 1742-6 LOINC ALKALINE PHOS 122 U/L L=38 H=126 6768-6 LOINC TOTAL BILI 0.6 mg/dL L=0.2 H=1.3 1975-2 LOINC ALBUMIN 4.4 G/dL L=3.5 H=5.0 1751-7 LOINC TOTAL PROTEIN 7.8 g/L L=6.3 H=8.2 2885-2 LOINC A/G RATIO 1.3 38906-0 LOINC AGE 68 17996-5 LOINC eGFR NON-AFR 64 ml/min eGFR AFR AMER 77 ml/min CRP NON SPECIFIC - Collect D ate/Time: 05/27/2024 11:50 [facility] [id number] [address] [place] [address], [phone] LOINC: 1987-08 Test Value Unit Reference Range Code Code System Flag CRP-NON SPECIFIC 11.9 mg/L L=0.0 H=10.0 1987-08 LOINC H SED RATE - Collect Date/Time : 05/27/2024 11:50 [facility] [id number] [address] [place] [address], [phone] LOINC: Test Value Unit Reference Range Code Code System Flag SED RATE 19 mm/hr L=0 H=[address] LUMBAR SPINE W/O CONTRAST - Completed: 05/27/2024 12:12 LOINC: \TM00\10PI\DRAo\BM09\ \MRLo\ [address] [address] ---------NAME--------- NUMBER SEX AGE ADMIT DISC. XRAY# F/C TYPE STROPE TREVOR LOZANO [id number] M 68 05/27/24 12688 MB1 E.R. DATE OF : 1955 M/R# [id number] #: [id number] ED-32 \MRHx\ LOCATION: TRANSCRIBED: 05/27/24 13:00 CT LUMBAR SPINE W/O CONTRAST 52058 COMPLETED:05/27/24 12:12 [facility] [address] ;hip pain PHYSICIAN: SHAMIR MEET R A D I O L O G Y R E P O R T CLINICAL INFORMATION: 68 years old, Male;hip pain. TECHNIQUE: Axial CT images of the lumbar spine were obtained without IV contrast. Axial CT images of the pelvis were obtained without IV contrast. Coronal and sagittal reformatted images were obtained, reviewed, and stored. One or more of the following dose reduction techniques were used: Automated exposure control. Adjustment of mA and/or kV according to patient size. CTDIvol = 15.68, 27.03, 0.14, 0.15 mGy DLP = 1217 mGy-cm COMPARISON: None FINDINGS: Lumbar spine: There is a lumbarized S1 of the lumbosacral junction with rudimentary disc at S1-S2. Vertebral body alignment is within normal limits. Vertebral body heights are maintained. Posterior elements are intact. No acute fracture. Paraspinal soft tissues are unremarkable. Lmkz-lc-ftuyfyib disc space narrowing at L4-L5 with associated endplate sclerosis and endplate spurring. Posterior disc osteophyte complex at L4-L5 mildly indents the ventral aspect of the thecal sac causing a mild degree of spinal canal stenosis and partial effacement of the lateral recesses. Moderate bilateral neural foraminal stenoses L4-L5 and L5-S1 due to facet hypertrophy and superimposed dorsal spurring at L4-L5. Pelvis: No acute fracture or dislocation. Ltch-nx-egakegqv joint space narrowing in both hips. Kaqu-gh-ydqtdwab sclerosis adjacent to the sacroiliac joints and pubic symphysis. Right testicle is visualized at the distal aspect of the right inguinal canal. No other significant soft tissue abnormality identified. IMPRESSION: 1. No evidence of acute fracture or spondylolisthesis in the lumbar spine. 2. No evidence of acute fracture of the pelvis. 3. Degenerative disc disease facet disease in the lumbar spine as described above. 4. Additional nonacute findings as detailed above. S AND SERVICE SUPERVISOR \ITLo\ \UNDo\ \UNDx\ \ITLx\ Reviewed and Electronically Signed by: Kailash Morgan DO Signed Date: 05/27/24 13:00 CT PELVIC W/O CONTRAST - Com pleted: 05/27/2024 12:12 LOINC: \TM00\10PI\DRAo\BM09\ \MRLo\ [address] [address] ---------NAME--------- NUMBER SEX AGE ADMIT DISC. XRAY# F/C TYPE ONESIMO LOZANO [id number] M 68 05/27/24 71746 MB1 E.R. DATE OF : 1955 M/R# [id number] #: [id number] ED-32 \MRHx\ LOCATION: TRANSCRIBED: 05/27/24 13:00 CT PELVIC W/O CONTRAST 68572 COMPLETED:05/27/24 12:12 [facility] [address] ;hip pain PHYSICIAN: SHAMIR DSOUZA R A D I O L O G Y R E P O R T CLINICAL INFORMATION: 68 years old, Male;hip pain. TECHNIQUE: Axial CT images of the lumbar spine were obtained without IV contrast. Axial CT images of the pelvis were obtained without IV contrast. Coronal and sagittal reformatted images were obtained, reviewed, and stored. One or more of the following dose reduction techniques were used: Automated exposure control. Adjustment of mA and/or kV according to patient size. CTDIvol = 15.68, 27.03, 0.14, 0.15 mGy DLP = 1217 mGy-cm COMPARISON: None FINDINGS: Lumbar spine: There is a lumbarized S1 of the lumbosacral junction with rudimentary disc at S1-S2. Vertebral body alignment is within normal limits. Vertebral body heights are maintained. Posterior elements are intact. No acute fracture. Paraspinal soft tissues are unremarkable. Hksb-ov-ihggpikh disc space narrowing at L4-L5 with associated endplate sclerosis and endplate spurring. Posterior disc osteophyte complex at L4-L5 mildly indents the ventral aspect of the thecal sac causing a mild degree of spinal canal stenosis and partial effacement of the lateral recesses. Moderate bilateral neural foraminal stenoses L4-L5 and L5-S1 due to facet hypertrophy and superimposed dorsal spurring at L4-L5. Pelvis: No acute fracture or dislocation. Smzv-oh-hurnalmz joint space narrowing in both hips. Rldx-dt-thvluizh sclerosis adjacent to the sacroiliac joints and pubic symphysis. Right testicle is visualized at the distal aspect of the right inguinal canal. No other significant soft tissue abnormality identified. IMPRESSION: 1. No evidence of acute fracture or spondylolisthesis in the lumbar spine. 2. No evidence of acute fracture of the pelvis. 3. Degenerative disc disease facet disease in the lumbar spine as described above. 4. Additional nonacute findings as detailed above. S AND SERVICE SUPERVISOR \ITLo\ \UNDo\ \UNDx\ \ITLx\ Reviewed and Electronically Signed by: Kailash Morgan DO Signed Date: 05/27/24 13:00 Social History Type Status Start Date End Date Code Code Syst em Smoking History Never smoker (Never Smoked) [id number] SNOMED CT Sex Male Medications Medication Start Date End Date Route Frequency Dose Code Code System Medication Instructions Home Meds Aspirin 81MG Oral Tablet, Enteric Coated 12/08/2023 Unknown ORAL ONCE A DAY 81 MILLIGRAMS 981546 RxNorm TAKE 81 MILLIGRAMS ORAL ONCE A DAY Chlorthalid one 25MG Oral Tablet 12/08/2023 Unknown ORAL ONCE A DAY 25 MILLIGRAMS 034116 RxNorm TAKE 25 MILLIGRAMS ORAL ONCE A DAY E-400-Clear 400 IU Oral Capsule 12/08/2023 Unknown ORAL ONCE A DAY 400 IU 458387 RxNorm TAKE 400 IU ORAL ONCE A DAY Esomeprazol e Magnesium 20MG Oral Capsule, Delayed Release 12/08/2023 Unknown ORAL ONCE A DAY 20 MILLIGRAMS 976586 RxNorm TAKE 20 MILLIGRAMS ORAL ONCE A DAY Famotidine 10 10MG Oral Tablet 12/08/2023 Unknown ORAL ONCE A DAY 10 MILLIGRAMS RxNorm TAKE 10 MILLIGRAMS ORAL ONCE A DAY Fexofenadin e HCl 180MG Oral Tablet 12/08/2023 Unknown ORAL NEEDED DAILY 180 MILLIGRAMS 294140 RxNorm TAKE 180 MILLIGRAMS ORAL NEEDED DAILY Gemfibrozil 600MG Oral Tablet 12/08/2023 Unknown ORAL TWICE A DAY 600 MILLIGRAMS 546391 RxNorm TAKE 600 MILLIGRAMS ORAL TWICE A DAY Jardiance 25MG Oral Tablet 12/08/2023 Unknown ORAL ONCE A DAY 25 MILLIGRAMS 2419644 RxNorm TAKE 25 MILLIGRAMS ORAL ONCE A DAY Lantus 100U/1ML Subcutaneou s Solution 12/08/2023 Unknown SUBCUTAN EOUS AT BEDTIME 1 unit(s) 613788 RxNorm INJECT INTO 1 EACH SUBCUTANEOUS AT BEDTIME Lisinopril 40MG Oral Tablet 12/08/2023 Unknown ORAL ONCE A DAY 80 MILLIGRAMS 452524 RxNorm TAKE 80 MILLIGRAMS ORAL ONCE A DAY Meclizine HCl 25MG Oral Tablet 12/08/2023 Unknown ORAL NEEDED 3 TIMES A DAY 25 MILLIGRAMS 470294 RxNorm TAKE 25 MILLIGRAMS ORAL NEEDED 3 TIMES A DAY Metoprolol Tartrate 100MG Oral Tablet 12/08/2023 Unknown ORAL TWICE A DAY 100 MILLIGRAMS 458386 RxNorm TAKE 100 MILLIGRAMS ORAL TWICE A DAY Mounjaro 5 MG/0.5 ML Subcutaneou s Solution 12/08/2023 Unknown SUBCUTAN EOUS ONCE A WEEK 1 unit(s) 0408079 RxNorm INJECT INTO 1 EACH SUBCUTANEOUS ONCE A WEEK Ocuvite Adult 50+ 150 MG-1 MG-6 MG-150 MG-30 INTERNATION AL UNITS-9 MG Oral Capsule, Liquid Filled 12/08/2023 Unknown ORAL ONCE A DAY 1 unit(s) RxNorm TAKE 1 EACH ORAL ONCE A DAY Belcher-3 1000MG Oral Capsule, Liquid Filled 12/08/2023 Unknown ORAL TWICE A DAY 2000 MILLIGRAMS 148860 RxNorm TAKE 2000 MILLIGRAMS ORAL TWICE A DAY Potassium Chloride 20MEQ Oral Tablet, Extended Release 12/08/2023 Unknown ORAL THREE TIMES A DAY 40 MEQ 8668492 RxNorm TAKE 40 MEQ ORAL THREE TIMES A DAY Rosuvastati n 10MG Oral Tablet 12/08/2023 Unknown ORAL AT BEDTIME 10 MILLIGRAMS 014631 RxNorm TAKE 10 MILLIGRAMS ORAL AT BEDTIME Triamcinolo ne Acetonide 0.5% Topical application Cream 12/08/2023 Unknown TOPICAL APPLICAT ION NEEDED 3 TIMES A DAY 1 unit(s) 9471969 RxNorm 1 EACH TOPICAL APPLICATION NEEDED 3 TIMES A DAY amLODIPine Besylate 10MG Oral Tablet 12/08/2023 Unknown ORAL ONCE A DAY 10 MILLIGRAMS 909043 RxNorm TAKE 10 MILLIGRAMS ORAL ONCE A DAY metFORMIN HCl 1000MG Oral Tablet 12/08/2023 Unknown ORAL TWICE A DAY 1000 MILLIGRAMS 140664 RxNorm TAKE 1000 MILLIGRAMS ORAL TWICE A DAY tadalafil 20MG Oral Tablet 12/08/2023 Unknown ORAL NEEDED DAILY 20 MILLIGRAMS 1452957 RxNorm TAKE 20 MILLIGRAMS ORAL NEEDED DAILY [...] de Code System No Known Allergies Active [id number] SNO CommonKey-CT Plan of Treatment Carpal Tunnel Release L 12/08/2023 Cubital Tunnel Release R 03/21/2024 Encounters Encounter Diagnosis Start Date Code Code Sys tem Weakness 05/27/2024 SNOMED-CT Personal Care Team Section Performer Name Performer Role Active Date Inactive Da te Imaging Narrative Notes [facility] 05/27/2024 13:[address] [address] ---------NAME--------- NUMBER SEX AGE ADMIT DISC. XRAY# F/C TYPE ONESIMO LOZANO [id number] M 68 05/27/24 07723 MB1 E.R. DATE OF : 1955 M/R# [id number] #: [id number] ED-32 LOCATION: TRANSCRIBED: 05/27/24 13:00 CT PELVIC W/O CONTRAST 43052 COMPLETED:05/27/24 12:12 [facility] [id number] ;hip pain PHYSICIAN: SHAMIR DSOUZA R A D I O L O G Y R E P O R T CLINICAL INFORMATION: 68 years old, Male;hip pain. TECHNIQUE: Axial CT images of the lumbar spine were obtained without IV contrast. Axial CT images of the pelvis were obtained without IV contrast. Coronal and sagittal reformatted images were obtained, reviewed, and stored. One or more of the following dose reduction techniques were used: Automated exposure control. Adjustment of mA and/or kV according to patient size. CTDIvol = 15.68, 27.03, 0.14, 0.15 mGy DLP = 1217 mGy-cm COMPARISON: None FINDINGS: Lumbar spine: There is a lumbarized S1 of the lumbosacral junction with rudimentary disc at S1-S2. Vertebral body alignment is within normal limits. Vertebral body heights are maintained. Posterior elements are intact. No acute fracture. Paraspinal soft tissues are unremarkable. Zcyl-hq-sqxixwdb disc space narrowing at L4-L5 with associated endplate sclerosis and endplate spurring. Posterior disc osteophyte complex at L4-L5 mildly indents the ventral aspect of the thecal sac causing a mild degree of spinal canal stenosis and partial effacement of the lateral recesses. Moderate bilateral neural foraminal stenoses L4-L5 and L5-S1 due to facet hypertrophy and superimposed dorsal spurring at L4-L5. Pelvis: No acute fracture or dislocation. Qqna-ax-oqbvzykn joint space narrowing in both hips. Ayvs-bi-zgfnlswm sclerosis adjacent to the sacroiliac joints and pubic symphysis. Right testicle is visualized at the distal aspect of the right inguinal canal. No other significant soft tissue abnormality identified. IMPRESSION: 1. No evidence of acute fracture or spondylolisthesis in the lumbar spine. 2. No evidence of acute fracture of the pelvis. 3. Degenerative disc disease facet disease in the lumbar spine as described above. 4. Additional nonacute findings as detailed above. S AND SERVICE SUPERVISOR Reviewed and Electronically Signed by: Kailash Morgan DO Signed Date: 05/27/24 13:00 [facility] 05/27/2024 13:[address] [address] ---------NAME--------- NUMBER SEX AGE ADMIT DISC. XRAY# F/C TYPE ONESIMO LOZANO [id number] M 68 05/27/24 19798 MB1 E.R. DATE OF : 1955 M/R# [id number] #: [id number] ED-32 LOCATION: TRANSCRIBED: 05/27/24 13:00 CT LUMBAR SPINE W/O CONTRAST 24066 COMPLETED:05/27/24 12:12 [facility] [id number] ;hip pain PHYSICIAN: SHAMIR MEET R A D I O L O G Y R E P O R T CLINICAL INFORMATION: 68 years old, Male;hip pain. TECHNIQUE: Axial CT images of the lumbar spine were obtained without IV contrast. Axial CT images of the pelvis were obtained without IV contrast. Coronal and sagittal reformatted images were obtained, reviewed, and stored. One or more of the following dose reduction techniques were used: Automated exposure control. Adjustment of mA and/or kV according to patient size. CTDIvol = 15.68, 27.03, 0.14, 0.15 mGy DLP = 1217 mGy-cm COMPARISON: None FINDINGS: Lumbar spine: There is a lumbarized S1 of the lumbosacral junction with rudimentary disc at S1-S2. Vertebral body alignment is within normal limits. Vertebral body heights are maintained. Posterior elements are intact. No acute fracture. Paraspinal soft tissues are unremarkable. Xaxr-kd-zjbnsgte disc space narrowing at L4-L5 with associated endplate sclerosis and endplate spurring. Posterior disc osteophyte complex at L4-L5 mildly indents the ventral aspect of the thecal sac causing a mild degree of spinal canal stenosis and partial effacement of the lateral recesses. Moderate bilateral neural foraminal stenoses L4-L5 and L5-S1 due to facet hypertrophy and superimposed dorsal spurring at L4-L5. Pelvis: No acute fracture or dislocation. Bebd-xk-ozezdlag joint space narrowing in both hips. Srjd-jf-efqafahn sclerosis adjacent to the sacroiliac joints and pubic symphysis. Right testicle is visualized at the distal aspect of the right inguinal canal. No other significant soft tissue abnormality identified.
--- OUTSIDE RECORDS SUMMARY | 2024-07-26 12:30 | XMS_ITS ---
Author Organization Unknown Address [address] [place] [phone] Phone Care Team Providers Care Aluminum Pourer Name Role Phone LAZARO Mcdaniel Attending Unavailable [...] em Smoking History Never smoker (Never Smoked) [id number] SNOMED CT Sex Male Medications Medication Start Date End Date Route Frequency Dose Code Code System Medication Instructions Home Meds Amitriptyline HCl 50MG Oral Tablet 12/08/2023 03/15/2024 ORAL AT BEDTIME 25 MILLIGRAMS 244511 RxNorm TAKE 25 MILLIGRAMS ORAL AT BEDTIME Aspirin 81MG Oral Tablet, Enteric Coated 12/08/2023 Unknown ORAL ONCE A DAY 81 MILLIGRAMS 605815 RxNorm TAKE 81 MILLIGRAMS ORAL ONCE A DAY Chlorthalidone 25MG Oral Tablet 12/08/2023 Unknown ORAL ONCE A DAY 25 MILLIGRAMS 776459 RxNorm TAKE 25 MILLIGRAMS ORAL ONCE A DAY E-400-Clear 400 IU Oral Capsule 12/08/2023 Unknown ORAL ONCE A DAY 400 IU 366521 RxNorm TAKE 400 IU ORAL ONCE A DAY Esomeprazole Magnesium 20MG Oral Capsule, Delayed Release 12/08/2023 Unknown ORAL ONCE A DAY 20 MILLIGRAMS 801251 RxNorm TAKE 20 MILLIGRAMS ORAL ONCE A DAY Famotidine 10 10MG Oral Tablet 12/08/2023 Unknown ORAL ONCE A DAY 10 MILLIGRAMS RxNorm TAKE 10 MILLIGRAMS ORAL ONCE A DAY Fexofenadine HCl 180MG Oral Tablet 12/08/2023 Unknown ORAL NEEDED DAILY 180 MILLIGRAMS 927636 RxNorm TAKE 180 MILLIGRAMS ORAL NEEDED DAILY Gemfibrozil 600MG Oral Tablet 12/08/2023 Unknown ORAL TWICE A DAY 600 MILLIGRAMS 495337 RxNorm TAKE 600 MILLIGRAMS ORAL TWICE A DAY Jardiance 25MG Oral Tablet 12/08/2023 Unknown ORAL ONCE A DAY 25 MILLIGRAMS 1796267 RxNorm TAKE 25 MILLIGRAMS ORAL ONCE A DAY Lantus 100U/1ML Subcutaneous Solution 12/08/2023 Unknown SUBCU TANEO US AT BEDTIME 1 unit(s) 168692 RxNorm INJECT INTO 1 EACH SUBCUTANEOU S AT BEDTIME Lisinopril 40MG Oral Tablet 12/08/2023 Unknown ORAL ONCE A DAY 80 MILLIGRAMS 255837 RxNorm TAKE 80 MILLIGRAMS ORAL ONCE A DAY Meclizine HCl 25MG Oral Tablet 12/08/2023 Unknown ORAL NEEDED 3 TIMES A DAY 25 MILLIGRAMS 201737 RxNorm TAKE 25 MILLIGRAMS ORAL NEEDED 3 TIMES A DAY Metoprolol Tartrate 100MG Oral Tablet 12/08/2023 Unknown ORAL TWICE A DAY 100 MILLIGRAMS 199038 RxNorm TAKE 100 MILLIGRAMS ORAL TWICE A DAY Mounjaro 5 MG/0.5 ML Subcutaneous Solution 12/08/2023 Unknown SUBCU TANEO US ONCE A WEEK 1 unit(s) 5098880 RxNorm INJECT INTO 1 EACH SUBCUTANEOU S ONCE A WEEK Ocuvite Adult 50+ 150 MG-1 MG-6 MG-150 MG-30 INTERNATIONAL UNITS-9 MG Oral Capsule, Liquid Filled 12/08/2023 Unknown ORAL ONCE A DAY 1 unit(s) RxNorm TAKE 1 EACH ORAL ONCE A DAY [place]-3 1000MG Oral Capsule, Liquid Filled 12/08/2023 Unknown ORAL TWICE A DAY 2000 MILLIGRAMS 776262 RxNorm TAKE 2000 MILLIGRAMS ORAL TWICE A DAY Potassium Chloride 20MEQ Oral Tablet, Extended Release 12/08/2023 Unknown ORAL THREE TIMES A DAY 40 MEQ 4157795 RxNorm TAKE 40 MEQ ORAL THREE TIMES A DAY Rosuvastatin 10MG Oral Tablet 12/08/2023 Unknown ORAL AT BEDTIME 10 MILLIGRAMS 455231 RxNorm TAKE 10 MILLIGRAMS ORAL AT BEDTIME Triamcinolone Acetonide 0.5% Topical application Cream 12/08/2023 Unknown TOPIC AL APPLI CATIO N NEEDED 3 TIMES A DAY 1 unit(s) 7994529 RxNorm 1 EACH TOPICAL APPLICATION NEEDED 3 TIMES A DAY amLODIPine Besylate 10MG Oral Tablet 12/08/2023 Unknown ORAL ONCE A DAY 10 MILLIGRAMS 270866 RxNorm TAKE 10 MILLIGRAMS ORAL ONCE A DAY metFORMIN HCl 1000MG Oral Tablet 12/08/2023 Unknown ORAL TWICE A DAY 1000 MILLIGRAMS 592865 RxNorm TAKE 1000 MILLIGRAMS ORAL TWICE A DAY tadalafil 20MG Oral Tablet 12/08/2023 Unknown ORAL NEEDED DAILY 20 MILLIGRAMS 6525336 RxNorm TAKE 20 MILLIGRAMS ORAL NEEDED DAILY [...] de Code System No Known Allergies Active [id number] SNO MED-CT Plan of Treatment Carpal Tunnel Release L 12/08/2023 Cubital Tunnel Release R 03/21/2024 Encounters Encounter Diagnosis Start Date Code Code Sys tem Encounter for surgical after care following surgery on the nervous system 12/22/2023 SNOMED-CT Personal Care Team Section Performer Name Performer Role Active Date Inactive Da te
== END 2024-07-26 11:08 | disposition home or self-care (01) ==
LOC: CHSLAB 11:09
PROVIDERS: PCP Family Medicine; Visit Provider Specialist
DX: C44.722 Squamous cell carcinoma of skin of right lower limb, including hip (principal); C44.329 Squamous cell carcinoma of skin of other parts of face
CPT/HCPCS: 88305